=== PATIENT | female | born 1950 | race Caucasian/White ===

== ENCOUNTER 2019-12-17 15:23 | Emergency (ER) | payer MEDICARE, BC, SELFPAY ==
[2019-12-17 15:29] VITALS: BP 175/99; PULSE 74; RESP 16; TEMP 36.3; O2SAT 99
--- NOTE | 2019-12-17 15:52 | ED.GENADUL_ITS ---
Discharge Plan Disposition Patient Disposition: HOME Condition: Stable Discharge Details Chief Complaint: Cellulitis Clinical Impression: Rash Primary Care Provider: None,None ED Provider: Claudia Dick Home Meds and New Rx's Prescriptions: New prednisone 20 mg tablet See Rx Instructions .ROUTE .COMPLEX Qty: 18 RF: 0 doxycycline hyclate 100 mg tablet 100 mg PO BID 7 Days Qty: 14 RF: 0 Discharge Instructions Instructions: Acute Rash (ED), Dermatitis (ED) Additional Instructions: Take the steroids until finished. Take benadryl as needed and directed for itching. If you develop leg pain or fever, you can start the antibiotics. You will receive a call from care management regarding a follow-up appointment with the primary care doctor. You may benefit from referral to dermatology if her symptoms persist or worsen. Discharge Data Discharge Physician: Claudia Dick Medical Decision Making 69-year-old female presents with pruritic rash to back, abdomen and legs for the past several months. She has worsening rash to her left lower leg over the past few weeks. She denies any associated symptoms of fever, URI symptoms, shortness of breath or new exposures or meds. Her blood pressure is elevated but she appears nontoxic. She is afebrile. Normal ENT exam. Lungs clear. She has scattered patchy erythematous papules noted to her posterior neck and back as well as bilateral lower legs. Her left leg has significant more erythema and thickened epidermis. She has no leg pain or fever so doubt this is cellulitis at this time but would have concern of this as she has been scratching the area. Discussed at length that this does not appear obviously consistent with urticaria but contact dermatitis remains a possibility. Will treat with oral steroids. She was placed on care management list to arrange for follow-up appointment with her primary care doctor and for referral to dermatology if symptoms persist or worsen. She was also given a prescription for doxycycline if she develops leg pain or fever. She was advised to return here with any worsening symptoms. Medical Records Medical records reviewed: Yes I reviewed the patient's medical records. HPI General Mode of arrival: ambulatory . Date/Time Provider Initiated Documentation: 12/17/19 15:26 . Limitations to Documentation: no limitations . Information obtained by: patient . HPI Narrative: Patient is a 69-year-old female with a history of hypertension who presents with itchy rash to her entire body since [place]. She states the rash started on her neck and back and is now progressed to her abdomen and both legs. She states her left leg has become more itchy and red over the past several weeks which she has been scratching. She states the past few days she has developed a rash to her right upper lower leg. She denies any pain associated with the rash, fever, sore throat, cough, chest pain, shortness of breath, abdominal pain, nausea or vomiting. She denies any new exposures including new meds, soaps, detergents, travel, pets or foods. She has used hydrocortisone and taken Benadryl without significant relief. Related Data Home Medications Medication Instructions Recorded Confirmed doxycycline hyclate 100 mg PO BID 7 Days #14 tab 12/17/19 prednisone See Rx Instructions .ROUTE 12/17/19 .COMPLEX #18 tab Previous Rx's Medication Instructions Recorded doxycycline hyclate 100 mg PO BID 7 Days #14 tab 12/17/19 prednisone See Rx Instructions .ROUTE 12/17/19 .COMPLEX #18 tab Allergies Allergy/AdvReac Type Severity Reaction Status Date / Time Penicillins Allergy Unknown ITCHING, Unverified 12/17/19 15:33 RASH General Stated Complaint: Cellulitis CHANCE: 3 Review of Systems All systems reviewed & are unremarkable except as noted in HPI and below Constitutional Constitutional: Reports as per HPI, Denies chills and Denies fever(s) Eyes Eyes: Denies blurry vision ENT Ears, Nose, Mouth, and Throat: Denies dizziness, Denies sore throat and Denies throat swelling Cardiovascular Cardiovascular: Denies chest pain and Denies dyspnea Respiratory Respiratory: Denies cough and Denies dyspnea Gastrointestinal Gastrointestinal: Denies abdominal pain, Denies diarrhea and Denies vomiting Genitourinary Genitourinary: Denies hematuria and Denies dysuria Musculoskeletal Musculoskeletal: Denies back pain and Denies numbness Integumentary/Breasts Skin/Breast: Denies lesions and Denies rash Neurologic Neurologic: Denies dizziness, Denies localized weakness and Denies numbness Allergic/Immunologic Allergic/Immunologic: Denies throat swelling [facility] Medical History (Updated 12/17/19 @ 16:07 by Claudia Dick DO) HTN (hypertension) (Chronic) Surgical History (Updated 12/17/19 @ 16:07 by Claudia Dick DO) History of cataract surgery (Chronic) Social History Smoking/Tobacco Use Status: Current every day Tobacco Type: e-cigarettes Alcohol Intake: current Alcohol Intake frequency: 0-2 drinks per day Alcohol type: wine Drug use: Never Exam Const General: cooperative and healthy appearing Orientation: alert and awake [facility] Head: normal to inspection Ears: hearing grossly normal bilaterally, external ears normal and TM's normal bilaterally General nose exam: external nose normal Face and sinus: normal facial exam Mouth: oral mucosae normal Teeth and gingiva: dentition normal Throat: posterior oropharynx normal Eyes General: appearance normal, both eyes and all related structures Eyelids: eyelids normal Pupils: PERRL EOM: EOM intact bilaterally Neck Neck: normal visual inspection Lymphatic: no lymphadenopathy noted Chest Chest: normal inspection of the chest Resp Effort & Inspection: normal respiratory effort and able to speak in complete se ntences Auscultation: clear to auscultation bilaterally Cardio Rate: regular rate Rhythm: regular rhythm GI Inspection: normal to inspection Palpation: soft, not firm, no guarding, no hepatosplenomegaly, no masses and nontender Auscultation: normal bowel sounds Skin Other: scattered raised erythematous papules, some well circumscribed and some not well circumscribed noted to back of neck, back, abdomen, L lower leg, right proximal lower leg. Left lower leg noted to have more significant patchy erythema with thickened epidermis. Left ankle noted to have circumferential erythema and scaling of skin. There is no left calf tenderness. Left DP/PT pulses intact. There are scattered faint erythematous papules noted to right posterior proximal leg. Neuro General: patient alert and patient awake Cognition: normal cognition Speech: speech normal Gait: normal gait Motor: muscle tone normal throughout Sensory Exam: no sensory deficits noted Extrem General: normal to inspection, full ROM and capillary refill normal Psych Appearance: grossly normal Mental Status: mental status grossly normal Speech and Movement: speech and movement normal Affect: normal affect Thought Process: normal Course Vital Signs Vital signs: Vital Signs Temperature 97.3 F L 12/17/19 15:29 Pulse 74 12/17/19 15:29 Respiratory Rate 16 12/17/19 15:29 Blood Pressure 175/99 H 12/17/19 15:29 Pulse Oximetry 99 12/17/19 15:29 Temperature 97.3 F L 12/17/19 15:29 Temperature Source Skin 12/17/19 15:29 Pulse 74 12/17/19 15:29 Respiratory Rate 16 12/17/19 15:29 Respiratory Effort Non-Labored 12/17/19 15:29 Blood Pressure 175/99 H 12/17/19 15:29 Blood Pressure Position Sitting 12/17/19 15:29 Pulse Oximetry 99 12/17/19 15:29 Oxygen Delivery Method Room Air 12/17/19 15:29 Oxygen Flow Rate 0 12/17/19 15:29 Pain Level 2 12/17/19 15:29
[2019-12-17] MEDS: predniSONE 20 MG TAB 60 MG PO (15:56)
[2019-12-17 16:07] VITALS: BP 187/73
--- NOTE | 2020-02-12 13:25 | CMACTNOTE_ITS ---
- If Service Date Differs Date of service: 12/19/19 Time of Service: 13:25 Care Management Activity Note At the request of ED provider, CM coordinates a referral to [facility] to assist patient in establishing care with a PCP.
== END 2019-12-17 16:08 | disposition home or self-care (01) ==
PROVIDERS: Emergency Provider Physician Assistant
DX: R21 Rash and other nonspecific skin eruption (principal); I10 Essential (primary) hypertension
CPT/HCPCS: 99283; J7512

== ENCOUNTER 2020-02-12 08:48 | Emergency (ER) | payer MEDICARE, BC, SELFPAY ==
[2020-02-12 08:57] VITALS: BP 184/84; PULSE 85; RESP 18; TEMP 36.5; O2SAT 95
--- NOTE | 2020-02-12 09:00 | DI.US_ITS ---
EXAM: US LOWER EXTREMITY VENOUS LT CLINICAL HISTORY: swelling, reddness TECHNIQUE: Ultrasound performed using standard protocol. COMPARISON: No exams were available for comparison FINDINGS: Duplex venous ultrasound was performed according to the usual protocol. The deep veins are freely com pressible throughout and there is normal flow augmentation with manual calf compression. 2D and Doppl er evaluation are unremarkable. IMPRESSION: No evidence of deep venous thrombosis of left lower extremity.
--- NOTE | 2020-02-12 09:13 | W.ED.GENAD ---
Discharge Plan Disposition Patient Disposition: HOME Condition: Stable Discharge Details Chief Complaint: RashLesion Clinical Impression: Eczema Primary Care Provider: None,None ED Provider: Payal West Home Meds and New Rx's Prescriptions: New triamcinolone acetonide 0.1 % cream 1 applic TP BID 7 Days Qty: 30 RF: 0 Discharge Instructions Instructions: Eczema (ED) Additional Instructions: Use topical cream as instructed, return for any fever, chills. Care management was contacted regarding follow-up with primary care provider. Follow up with primary care provider in 3-5 days. Return to ED sooner if any worsening or concerns. Increase oral fluids. No DVT or clot noted on ultrasound. Keep leg covered with dressing. Medical Decision Making 69-year-old female presents with rash, left lower extremity erythema edema and oozing. Patient was seen for this in November and was referred to primary care which she has never followed up with. She was given prednisone and doxycycline at that time she reports that symptoms returned as soon as prednisone was finished. Differential diagnosis includes eczema, cellulitis, scabies, peripheral vascular disease, DVT Preliminary result from optomechanical technician is negative for DVT. At this time I feel like this patient has atopic dermatitis or eczema. Will prescribe triamcinolone topical cream. HPI General Mode of arrival: ambulatory. Date/Time Provider Initiated Documentation: 02/12/20 08:51. Limitations to Documentation: no limitations. Information obtained by: patient and family. HPI Narrative: 69-year-old female presents with left lower leg erythema, oozing and sloughing. She was seen for similar complaint middle of November and has not been able to follow-up with PCP since then. Rash began in October and on her lower back with positive pruritus and then spread to her abdomen arm and lower extremity. It is plaque-like, dry, and lower extremity is sloughing. She denies fever chills, pain or any other symptoms. Related Data Home Medications Medication Instructions Recorded Confirmed triamcinolone acetonide 1 applic TP BID 7 Days #30 gm 02/12/20 Previous Rx's Medication Instructions Recorded triamcinolone acetonide 1 applic TP BID 7 Days #30 gm 02/12/20 Allergies Allergy/AdvReac Type Severity Reaction Status Date / Time Penicillins Allergy Unknown ITCHING, Unverified 02/12/20 09:03 RASH General Stated Complaint: RashLesion CHANCE: 3 Review of Systems Narrative: Constitutional: Negative for weight loss, alert and oriented, well groomed, normal body habitus, appears comfortable. HEENT: Denies trauma, headaches, blurry vision, nasal discharge, sore throat, trouble swallowing. Chest: Denies chest pain, palpitations, irregular rhythm, hypertension. Respiratory: Denies Shortness of breath, cough, hemoptysis. GI: Denies abdominal pain, nausea, vomiting, diarrhea, constipation. : Denies dysuria, hematuria, flank pain, rectal bleeding. Skin: Dry patchy plaque-like rash severe on left lower extremity with oozing and erythema. Neuro: Denies dizziness, blurry vision, weakness, syncope, headache or facial numbness. Hematologic: Denies easy bruising, intolerance to heat or cold, hair loss. [facility] Medical History HTN (hypertension) (Chronic) Surgical History History of cataract surgery (Chronic) Social History Smoking/Tobacco Use Status: Current every day Tobacco Type: e-cigarettes Alcohol Intake: current Alcohol Intake frequency: 0-2 drinks per day Alcohol type: wine Drug use: Never Do you feel safe at home: Yes Do you feel safe in your relationship?: Yes Exam Narrative Exam Narrative: Constitutional: Alert and oriented x3. Appears stated age. Normal body habitus. Head: Normocephalic, no trauma. Eyes: Pupils PERRLA, Red reflex noted, EOM's intact. Eyelids symmetrical without lesions, discharge, or swelling. ENT: Bilateral TM's WNL, External ear normal to inspection, no mastoid TTP, swelling, or erythema, Nasal turbinates WNL, no nasal discharge. Normal dentition, Posterior pharynx WNL, no exudate. Chest: RRR, Normal S1, S2, distal pulses intact. Resp: Lungs clear to auscultation bilaterally, no wheezes, rales, or rhonchi. Musculoskeletal: Normal gait, 5/5 strength to all four extremities. Skin: Dry patchy pruritic plaque-like rash noted to her lower back, abdomen, left inner thigh left lower extremity is erythemic with sloughing of skin and oozing. 2+ edema noted. Capillary refill less than 2 sec. Neurologic: Cranial nerves II-XII intact. Alert and oriented x 3. DTR's intact. Hematologic/Lymphatic: No ecchymosis, no lymphadenopathy. Course Vital Signs Vital signs: Vital Signs Temperature 36.5 C 02/12/20 08:57 Pulse 85 02/12/20 08:57 Respiratory Rate 18 02/12/20 08:57 Blood Pressure 184/84 H 02/12/20 08:57 Pulse Oximetry 95 02/12/20 08:57 Temperature 36.5 C 02/12/20 08:57 Temperature Source Skin 02/12/20 08:57 Pulse 85 02/12/20 08:57 Respiratory Rate 18 02/12/20 08:57 Respiratory Effort 02/12/20 09:03 Blood Pressure 184/84 H 02/12/20 08:57 Blood Pressure Position Sitting 02/12/20 08:57 Pulse Oximetry 95 02/12/20 08:57 Oxygen Delivery Method Room Air 02/12/20 08:57 Oxygen Flow Rate 0 02/12/20 08:57 Pain Level 5 02/12/20 08:57
--- NOTE | 2020-02-12 09:18 | NUR.NOTE ---
Nursing Note: CARE MANAGEMENT REFERRAL IN INBOX
[2020-02-12] MEDS: Triamcinolone 0.1% CR 15 GM TUBE TP (09:33)
[2020-02-12] MEDS: Normal Saline Flush 10 ML SYR IVP (09:34)
[2020-02-12 09:36] LABS: Abs Immature Grans 0.05 k/cumm (0.0-0.09); Absolute Basophil Count 0.04 k/cumm (0.0-0.2); Absolute Eosinophil Count 0.32 k/cumm (0.0-0.7); Absolute Lymphocyte Count 1.29 k/cumm (1.2-3.4); Absolute Monocyte Count 1.06 k/cumm (0.11-0.7); Basophils % 0.5; Eosinophils % 3.7; HCT 42.9 % (36.0-46.0); HGB 14.4 g/dL (12.0-15.5); Immature Grans % 0.6 %; Lymphocytes % 15.1; Mean Corp. HGB Concentration 33.6 g/dL (32.0-36.0); Mean Corpuscular Hemoglobin 33.1 pg (27.0-33.0); Mean Corpuscular Volume 98.6 fL (80-95); Mean Platelet Volume 9.2 fL (8.0-11.0); Monocytes % 12.4; Neutrophils % 67.7; Platelet Count 295 x1000/uL (130-400); RBC 4.35 m/cumm (4.00-5.20); RBC Distribution Width 13.5 % (11.7-14.6); White Blood Cell Count 8.56 k/cumm (4.4-10.8)
[2020-02-12 09:49] LABS: ALT 23 U/L (14-59); AST 24 U/L (15-37); Albumin 3.5 g/dL (3.4-5.0); Alkaline Phosphatase 82 U/L (46-116); Anion Gap 6.7 mmol/L (3-11); BUN 12 mg/dL (7-18); Bilirubin, Total 0.8 mg/dL (0.2-1.0); CO2 29.3 mmol/L (21.0-32.0); CREATININE 0.72 mg/dL (0.55-1.02); Chloride 103 mmol/L (98-107); Glucose 111 mg/dL (74-106); Potassium 4.4 mmol/L (3.5-5.1); Sodium 139 mmol/L (136-145); Total Protein 7.1 g/dL (6.4-8.2)
[2020-02-12 11:18] VITALS: BP 183/81; PULSE 66; RESP 18; TEMP 36.5; O2SAT 97
--- NOTE | 2020-02-12 11:28 | NUR.NOTE ---
Nursing Note: REFERRAL TO CARE MANAGEMENT IN INBOX
--- NOTE | 2020-02-12 14:45 | CMPROGNOTE_ITS ---
- If Service Date Differs Date of service: 02/12/20 Time of Service: 14:45 Care Management Progress Note At ED provider's request, CM coordinates a referral to [facility] (tel. [phone], fax [phone]) and to [facility] to establish care with a PCP. Of note a referral was sent to [facility] in December 2019, but CM confirms they did not connect with patient, so she was never assigned a doctor through their medical office.
== END 2020-02-12 11:32 | disposition home or self-care (01) ==
PROVIDERS: Emergency Provider Registered Nurse Emergency; PCP Internal Medicine
DX: R60.0 Localized edema (principal); L30.9 Dermatitis, unspecified; I10 Essential (primary) hypertension
CPT/HCPCS: 36415; 80053; 99284; 85025; 93971

== ENCOUNTER 2022-07-19 20:42 | Emergency (ER) | payer MEDICARE, BC, SELFPAY ==
[2022-07-19] VITALS (9 sets, daily range): BP systolic 142–146; BP diastolic 81–110; PULSE 60–83; RESP 13–25; TEMP 36.4–36.8; O2SAT 89–99
--- NOTE | 2022-07-19 20:45 | RT.EKG_ITS ---
APPROVED REPORT Exam: Resting ECG Reason for Exam: fall Patient Location: E HR:67 bpm ECG Measurements Heart Rate 67 AXIS MO [id number] P [id number] QRSd 100 QRS 59 QT 580 T 57 QTc 622 Conclusion Physiican: Rate 67, sinus rhythm, notable artifact secondary to the patient's intoxicated state and continued mo vement. No STEMI.
--- NOTE | 2022-07-19 21:00 | DI.CT_ITS ---
Exam(s) CT HEAD WO EXAM: CT HEAD WO CLINICAL HISTORY: fall, etoh, hit head. TECHNIQUE: Imaging Protocol: Axial computed tomography images with coronal and sagittal reformatted images were created and reviewed COMPARISON: No exams were available for comparison FINDINGS: There are no skull fractures nor fluid in the visualized paranasal sinuses. Some mild mucosal thick ening is noted maxillary sinuses but without fluid levels therein. There is ossification of right-si ded mastoid air cells. Left mastoid air cells are clear. No fluid evident in either middle ear cavi ty. There is no evidence of intracranial hemorrhage, mass effect, or shift of midline structures. There are no extra-axial fluid collections. The ventricles are not enlarged or shifted and there is no blo od within the ventricular system nor within the basal cisterns. Bilateral mild periventricular hypodensity. No obvious territorial infarction. IMPRESSION: No acute intracranial findings on this noninfused CT scan of the brain. RADIATION DOSE DELIVERED: 709.51mGy.cm Total DLP DATA REPOSITORY: All CT scans at this facility are submitted to the National Radiology Data Registry (NRDR) Dose Index Registry (DIR) with the [employer] ([employer]). RADIATION OPTIMIZATION: All CT scans at this facility use at least one of these dose optimization te chniques: automated exposure control; mA and/or kV adjustment per patient size (includes targeted exa ms where dose is matched to clinical indication); or iterative reconstruction.
[2022-07-19 21:20] LABS: Abs Immature Grans 0.09 10^3/uL (0.0-0.06); Absolute Basophil Count 0.06 10^3/uL (0.0-0.2); Absolute Eosinophil Count 0.23 10^3/uL (0.0-0.7); Absolute Monocyte Count 0.77 10^3/uL (0.1-0.8); Absolute Neutrophil Count 3.25 10^3/uL (1.2-6.7); Basophils % 0.9; Eosinophils % 3.6; HCT 44.3 % (36.0-46.0); HGB 15.2 g/dL (11.2-15.7); Immature Grans % 1.4; Lymphocytes % 31.3; MCH 37.5 pg (27.0-33.0); MCHC 34.3 % (32.0-36.0); MCV 109 fL (80-95); MPV 9.4 fL (8.0-11.0); Neutrophils % 50.8; Platelet Count 240 10^3/uL (130-400); RBC 4.05 10^6/uL (3.93-5.22); RDW 13.5 % (11.7-14.6); RDW-SD 55.1 fL
[2022-07-19 21:48] LABS: Macrocytosis 2+
[2022-07-19 21:49] LABS: Diff Comment RBC Morph Reviewed
[2022-07-19 21:56] LABS: Bilirubin Negative (Negative); Blood Negative (Negative); Clarity Clear (Clear); Glucose Negative (Negative); Ketones Negative (Negative); Leukocyte Esterase Negative (Negative); Nitrite Negative (Negative); Urobilinogen 0.2 EU/dL (Up TO 0.2); pH 6.5 (5-8)
--- NOTE | 2022-07-19 22:04 | DI.VRAD_ITS ---
PROCEDURE INFORMATION: Exam: CT Head Without Contrast Exam date and time: 07/19/2022 9:55 PM Age: 71 years old Clinical indication: Injury or trauma; Concussion/head injury; Consciousness not specified; Injury date: 07/19/22; Injury details: Fall, ETOH, hit head TECHNIQUE: Imaging protocol: Computed tomography of the head without contrast. Radiation optimization: All CT scans at this facility use at least one of these dose optimization techniques: automated exposure control; mA and/or kV adjustment per patient size (includes targeted exams where dose is matched to clinical indication); or iterative reconstruction. COMPARISON: No relevant prior studies available. FINDINGS: Brain: Mild volume loss No hemorrhage. Mild white matter disease. No mass effect. Cerebral ventricles: No ventriculomegaly. Paranasal sinuses: Mild mucosal thickening. No fluid levels. Mastoid air cells: Visualized mastoid air cells are well aerated. Bones/joints: Unremarkable. No acute fracture. Soft tissues: Unremarkable. IMPRESSION: No acute intracranial abnormality. Dictated and Authenticated by: Claudio Davalos MD. Ordering:MOMO Boles MD
[2022-07-19 22:09] LABS: ALT 50 U/L (14-59); AST 65 U/L (15-37); Albumin 3.5 g/dL (3.4-5.0); Alkaline Phosphatase 89 U/L (46-116); Anion Gap 11.8 mmol/L (3-11); BUN 8 mg/dL (7-18); Bilirubin, Total 0.6 mg/dL (0.2-1.0); CO2 25.2 mmol/L (21.0-32.0); CREATININE 0.6 mg/dL (0.55-1.02); Chloride 106 mmol/L (98-107); Estimated GFR 95.31 (mL/min/1.73m2); Glucose 83 mg/dL (74-106); Potassium 3.6 mmol/L (3.5-5.1); Sodium 143 mmol/L (136-145); Total Protein 7.2 g/dL (6.4-8.2)
--- NOTE | 2022-07-19 22:19 | W.ED.GENAD ---
Discharge Plan Disposition Patient Disposition: HOME Condition: Stable Discharge Details Clinical Impression: ETOHism, Fall Primary Care Provider: Rosario Lawrence ED Provider: Ramana Bruce Home Meds and New Rx's Prescriptions: No Action triamcinolone acetonide 0.1 % cream 1 applic TP .qod Rx Instructions: lower extremity CeraVe cream in between daysper note dated 03/27/20 cgc Discharge Instructions Instructions: Abuse of Alcohol (ED) Additional Instructions: Please decrease your use of alcohol. If you continue on this track it will cause significant problems down the road. If you notice any worsening of your symptoms, or any new symptoms such as vomiting, diarrhea, fever, chills, shortness of breath, chest pain, numbness, weakness, or fainting , please return immediately to the emergency department for reevaluation. Please follow up with your primary care provider as soon as possible for reassessment and reevaluation. As always, it was a pleasure participating in your medical care today. Referrals: Rosario Lawrence MD [Primary Care Provider] - Medical Decision Making 71-year-old female with no significant past medical history who presents today for evaluation of fall after intoxication. Patient was at home and drank 9 shots of hard liquor. Patient was brought to the ER after she fell by EMS. Family states that the patient has not been to see a doctor in the last 10 years. Patient denies any pain at this point. She denies any chest pain, headache, neck pain, extremity pain. Patient did not hit her head per the . Patient does drink alcohol regularly. No other complaints at this time. No other modifying factors. Physical exam is notably unremarkable. No evidence of trauma whatsoever. Laboratory work-up was performed is stable. EKG is stable but there is notable artifact secondary to the patient's intoxicated status and movement. CT scan was performed and shows no evidence of acute process. No evidence of bleed or stroke per virtual radiology. Patient does have an elevated alcohol level. I spent a long time discussing the case with the patient's , we discussed between the and myself and the patient the need for cessation of alcohol gradually, the patient understands this but is not completely willing to do this. At this time I feel that the patient is stable for discharge, but do recommend continued close follow-up with PCP as well as slow diminishment of alcohol daily. Patient is otherwise notably stable. She ambulates well. feels comfortable bringing the patient home. I have extensively reviewed the treatment plan and discharge instructions with the patient and their family. I have addressed all patient concerns at this time. The patient and family was made aware of what symptoms to monitor for that would warrant a return to the emergency department. Discussed the plan with the patient and family, they demonstrate verbal understanding and agreement with our assessment and plan at this time. The documentation in this chart was dictated using [employer] dictation software. Please excuse any dictation errors. EKG 21: 24 Rate 67, sinus rhythm, notable artifact secondary to the patient's intoxicated state and continued movement. No STEMI. FINDINGS: Brain: Mild volume loss No hemorrhage. Mild white matter disease. No mass effect. Cerebral ventricles: No ventriculomegaly. Paranasal sinuses: Mild mucosal thickening. No fluid levels. Mastoid air cells: Visualized mastoid air cells are well aerated. Bones/joints: Unremarkable. No acute fracture. Soft tissues: Unremarkable. IMPRESSION: No acute intracranial abnormality. Thank you for allowing us to participate in the care of your patient. Dictated and Authenticated by: Claudio Davalos MD HPI General Date/Time Provider Initiated Documentation: 07/19/22 20:42. HPI Narrative: 71-year-old female with no significant past medical history who presents today for evaluation of fall after intoxication. Patient was at home and drank 9 shots of hard liquor. Patient was brought to the ER after she fell by EMS. Family states that the patient has not been to see a doctor in the last 10 years. Patient denies any pain at this point. She denies any chest pain, headache, neck pain, extremity pain. Patient did not hit her head per the . Patient does drink alcohol regularly. No other complaints at this time. No other modifying factors. Related Data Home Medications Medication Instructions Recorded Confirmed triamcinolone acetonide 0.1 % 1 applic topical .qod 04/02/20 topical cream Allergies Allergy/AdvReac Type Severity Reaction Status Date / Time Penicillins Allergy Unknown ITCHING, Unverified 02/18/20 12:02 RASH General Stated Complaint: ETOHWithdr CHANCE: 3 Review of Systems All systems reviewed & are unremarkable except as noted in HPI and below PFSH All Active Problems ETOHism (Acute) Fall (Acute) Medical History HTN (hypertension) Surgical History History of cataract surgery Social History Smoking/Tobacco Use Status: Current every day Tobacco Type: e-cigarettes Smoking risk assessment performed?: Yes Alcohol Intake: current Alcohol Intake frequency: 0-2 drinks per day Alcohol type: wine Drug use: Never Do you feel safe at home: Yes Do you feel safe in your relationship?: Yes Exam Narrative Exam Narrative: 1.Const: Well-nourished, Well-developed, appearing stated age 2.Eyes: PERRL, no conjunctival injection, and symmetrical lids. 3.ENT: Atraumatic external nose and ears. Moist MM. Neck: Symmetric, trachea midline, No thyromegaly. There is no evidence of raccoon eyes, avila sign, CSF rhinorrhea, mastoid tenderness, cranial crepitus, hemotympanum, exophthalmos, or hyphema. Patient demonstrates intact dentition with no signs of tooth avulsion or fracture, no signs of jaw deformity, no evidence of a LeFort's fracture, with an intact palate, nose and orbital region. There is no evidence of a nasal septal hematoma. No proptosis. Jaw closes symmetrically. Airway is clear. 4.CVS: +S1/S2, No murmurs or gallops. Peripheral pulses 2+ and equal in all extremities. Brisk capillary refill in all extremities. 5.RESP: Unlabored respiratory effort. Clear to auscultation bilaterally. No wheezes rales or rhonchi 6.GI: Soft, Nontender/Nondistended, No hepatosplenomegaly. No guarding or rebound. 7.MSK: Normocephalic/Atraumatic, Extremities w/o deformity or ttp No cyanosis or clubbing, Normal movement of all extremities 8.Skin: Warm, Dry. No rashes or lesions. 9.Neuro: automobile drivers II-XII grossly intact. Sensation grossly intact, no focal neurologic deficits. All 6 cardinal planes of vision are fully intact. No evidence of rotatory or vertical nystagmus. The patient demonstrated a normal ycegqs-djub-gcbinb, good dexterity. There was no evidence of dysdiadochokinesia. Patient was able to ambulate without difficulty. There was no wide-based gait. Romberg testing was normal. Nxrr-tf-zijq testing was normal. Sensation was intact bilaterally as well as muscle strength bilaterally for all extremities. Patient was able to verbalize butter cup with no slurring, or miss pronunciation. 10.Psych: (AAO) x3. Appropriate mood and affect Course Vital Signs Vital signs: Vital Signs Temperature 36.4 C L 07/19/22 20:40 Pulse 75 07/19/22 20:40 Respiratory Rate 15 07/19/22 20:40 Blood Pressure 146/81 H 07/19/22 20:40 Pulse Oximetry 99 07/19/22 20:40 Temperature 36.4 C L 07/19/22 20:40 Temperature Source Temporal Artery Scan 07/19/22 20:40 Pulse 66 07/19/22 21:47 Pulse 69 07/19/22 21:46 Respiratory Rate 18 07/19/22 21:47 Respiratory Effort 07/19/22 20:40 Respiratory Pattern Normal 07/19/22 21:21 Blood Pressure 143/99 H 07/19/22 21:47 Blood Pressure Mean 103 07/19/22 21:46 Pulse Oximetry 96 07/19/22 21:47 Oxygen Delivery Method Room Air 07/19/22 21:47 Oxygen Flow Rate 0 07/19/22 21:47 Pain Level 0 07/19/22 21:47 Lab/Test Results Lab/Test Results: Laboratory Tests Range/Units 07/19/22 07/19/22 07/19/22 20:17 20:17 21:43 WBC (4.4-10.8) 10^3/uL 6.40 RBC (3.93-5.22) 10^6/uL 4.05 Hgb (11.2-15.7) g/dL 15.2 Hct (36.0-46.0) % 44.3 MCV (80-95) fL 109 H MCH (27.0-33.0) pg 37.5 H MCHC (32.0-36.0) % 34.3 RDW (11.7-14.6) % 13.5 Plt Count (130-400) 10^3/uL 240 MPV (8.0-11.0) fL 9.4 Immature Gran % 1.4 Neutrophils % 50.8 Lymphocytes % 31.3 Monocytes % 12.0 Eosinophils % 3.6 Basophils % 0.9 Nucleated RBC % (0.0-0.3) % 0.0 Absolute Neutrophils (1.2-6.7) 10^3/uL 3.25 Absolute Lymphocytes (1.2-3.4) 10^3/uL 2.00 Absolute Monocytes (0.1-0.8) 10^3/uL 0.77 Absolute Eosinophils (0.0-0.7) 10^3/uL 0.23 Absolute Basophils (0.0-0.2) 10^3/uL 0.06 RBC Morphology See Below Macrocytosis 2+ Sodium Cancelled 143 Potassium Cancelled 3.6 Chloride Cancelled 106 Carbon Dioxide Cancelled 25.2 Anion Gap Cancelled 11.8 H BUN Cancelled 8 Creatinine Cancelled 0.6 Est GFR (CKD-EPI 2020) Cancelled 95.31 Glucose Cancelled 83 Calcium Cancelled 9.0 Total Bilirubin Cancelled 0.6 AST Cancelled 65 H ALT Cancelled 50 Alkaline Phosphatase Cancelled 89 Total Protein Cancelled 7.2 Albumin Cancelled 3.5 Urine Color (Yellow) Urine Clarity (Clear) Urine pH (5-8) Ur Specific Clayton (1.005-1.025) Urine Protein (Negative) mg/dL Urine Ketones (Negative) mg/dL Urine Blood (Negative) Urine Nitrite (Negative) Urine Bilirubin (Negative) Urine Urobilinogen (Up TO 0.2) EU/dL Ur Leukocyte Esterase (Negative) Urine Glucose (Negative) mg/dL Ethyl Alcohol Cancelled 228.0 H Range/Units 07/19/22 21:48 WBC (4.4-10.8) 10^3/uL RBC (3.93-5.22) 10^6/uL Hgb (11.2-15.7) g/dL Hct (36.0-46.0) % MCV (80-95) fL MCH (27.0-33.0) pg MCHC (32.0-36.0) % RDW (11.7-14.6) % Plt Count (130-400) 10^3/uL MPV (8.0-11.0) fL Immature Gran % Neutrophils % Lymphocytes % Monocytes % Eosinophils % Basophils % Nucleated RBC % (0.0-0.3) % Absolute Neutrophils (1.2-6.7) 10^3/uL Absolute Lymphocytes (1.2-3.4) 10^3/uL Absolute Monocytes (0.1-0.8) 10^3/uL Absolute Eosinophils (0.0-0.7) 10^3/uL Absolute Basophils (0.0-0.2) 10^3/uL RBC Morphology Macrocytosis Sodium Potassium Chloride Carbon Dioxide Anion Gap BUN Creatinine Est GFR (CKD-EPI 2020) Glucose Calcium Total Bilirubin AST ALT Alkaline Phosphatase Total Protein Albumin Urine Color (Yellow) Yellow Urine Clarity (Clear) Clear Urine pH (5-8) 6.5 Ur Specific [place] (1.005-1.025) 1.010 Urine Protein (Negative) mg/dL Negative Urine Ketones (Negative) mg/dL Negative Urine Blood (Negative) Negative Urine Nitrite (Negative) Negative Urine Bilirubin (Negative) Negative Urine Urobilinogen (Up TO 0.2) EU/dL 0.2 Ur Leukocyte Esterase (Negative) Negative Urine Glucose (Negative) mg/dL Negative Ethyl Alcohol PAWSS Have you Been Recently Intoxicated or Drunk Within the Last 30 days?: Yes Have you Ever Experienced Previous Episodes of Alcohol Withdrawal?: No Have you ever Experienced Withdrawal Seizures?: No Have you ever Experienced Delirium Tremens(DT)s?: No Have you ever undergone Alcohol Rehabilitation Treatment (i.e, inpt ot outpatient treatment programs)?: No Have you ever Experienced Blackouts?: No Have you ever Combined Alcohol with other Downers within the last 90 days?: No Have you ever Combined Alcohol with any other Substance of Abuse during the last 90 days?: No Positive Blood Alcohol level on Presentation? [PCS.BAL]: Yes Result: 2
== END 2022-07-19 22:38 | disposition home or self-care (01) ==
PROVIDERS: Emergency Provider Student in an Organized Health Care Education/Training Program; PCP Internal Medicine
DX: F10.129 Alcohol abuse with intoxication, unspecified (principal); I10 Essential (primary) hypertension; F17.290 Nicotine dependence, other tobacco product, uncomplicated; Y90.7 Blood alcohol level of 200-239 mg/100 ml; Z79.899 Other long term (current) drug therapy
CPT/HCPCS: 80053; 93005; 99284; 70450; 80320; 81003; 85025; 93010; 99285

== ENCOUNTER 2023-04-29 14:43 | Emergency (ER) | payer MEDICARE, BC, SELFPAY ==
[2023-04-29 15:00] VITALS: BP 142/99; PULSE 68; RESP 16; TEMP 36.9; O2SAT 96
--- NOTE | 2023-04-29 16:00 | DI.CT_ITS ---
Exam(s) CT BRAIN NECK CTA EXAM: CT BRAIN NECK CTA CLINICAL HISTORY: loss of vision left eye. TECHNIQUE: Imaging Protocol: Axial CT angiography was performed with multi-slice acquisition and mu lti-planar and/or 3D reconstructions. CONTRAST MATERIAL: Intravenous: Omnipaque 350 Contrast volume:structured data in ml COMPARISON: No exams were available for comparison FINDINGS: CTA Neck W: Aortic arch anatomy: There is independent origin of the left vertebral artery off the aortic arch. N o significant stenosis at the origin of the great vessels off of the aortic arch. No intimal flap ev ident. Anterior circulation: Both common carotid arteries ascend with normal luminal diameters. At the left carotid bulb there is some calcified plaque which extends into the anterior wall of the p roximal left internal carotid artery. No tight stenosis. The left internal carotid artery is somewh at tortuous in the upper neck but patent and also demonstrated to be patent in the skull base-carotid canal. The right carotid bulb exhibits minimal plaque. No significant stenosis evident at this level nor in the proximal right ICA. The course of the right internal carotid artery in the upper neck is predom inantly retropharyngeal to the level of the uvula, prior to entering the skull base-carotid canal. Posterior circulation: The left vertebral artery originates as an independent vessel off of the aortic arch. The left verte bral artery originates in conventional fashion off of the subclavian artery. There is no significant stenosis at the origin of either vertebral artery. The right vertebral artery is dominant but both are patent without evidence of intraluminal thrombus nor dissection. At the skull base both vertebra l arteries contribute to the formation of the basilar artery. CTA Brain W: Anterior circulation: Both internal carotid arteries are patent in the skull base-carotid canals as well as within the cave rnous sinuses. Mild calcified plaque is seen along the medial wall of the right intracavernous ICA. The ophthalmic arteries appear to be patent, region ating off of the intracavernous internal carotid arteries bilaterally. The supraclinoid aspects of both internal carotid arteries are patent. The left A1 segment is domina nt. Right A1 segment is thinner, on developmental basis. Both anterior cerebral arteries are patent . There is no evidence of aneurysm at the level of the anterior communicating artery. Both middle cerebral arteries are patent with no evidence of significant stenosis nor intraluminal th rombus. There also no aneurysms of these vessels. Posterior circulation: Basilar arteries patent without significant stenosis. Distally gives off superior cerebellar arterie s and above this level terminates as patent bilateral posterior cerebral arteries. There is no aneur ysm at the tip of the basilar artery nor elsewhere in the [id number]. CT BRAIN: There is no evidence of intracranial hemorrhage, mass effect, or shift of midline structures. There are no extra-axial fluid collections. Ventricles are not enlarged or shifted. There are no ring enh ancing lesions in the brain and no abnormal meningeal enhancement. There is relatively symmetrical bilateral periventricular white matter hypodensity consistent with ch ronic small vessel disease. IMPRESSION: 1. Patent carotid arteries in the neck. Mild plaque as described above at the carotid bulbs and prox imal ICAs. No obvious hemodynamically significant stenosis. The course of the right internal caroti d artery in the upper neck is noted to be retropharyngeal. 2. Patent vertebral arteries in the neck.. Right vertebral artery is dominant. No intraluminal thr ombus nor dissection of the vertebral arteries. 3. Patent intracranial arteries. 4. No evidence of obvious infarct or intracranial hemorrhage. No enhancing lesions in the brain and no abnormal meningeal enhancement evident. RADIATION DOSE DELIVERED: 1,870.37mGy.cm Total DLP DATA REPOSITORY: All CT scans at this facility are submitted to the National Radiology Data Registry (NRDR) Dose Index Registry (DIR) with the [employer] (A[employer]). RADIATION OPTIMIZATION: All CT scans at this facility use at least one of these dose optimization te chniques: automated exposure control; mA and/or kV adjustment per patient size (includes targeted exa ms where dose is matched to clinical indication); or iterative reconstruction.
--- NOTE | 2023-04-29 16:00 | RT.EKG_ITS ---
APPROVED REPORT Exam: Resting ECG Reason for Exam: Visual disturbances Patient Location: E HR:59 bpm ECG Measurements Heart Rate 59 AXIS OK 136 P 43 QRSd 86 QRS -12 QT 464 T -11 QTc 461 Conclusion Sinus bradycardia...rate< [address] intervals. No ST segment or T wave abnormalities to suggest occlusive [place]
--- NOTE | 2023-04-29 16:14 | ED.GENADUL_ITS ---
Discharge Plan Disposition Patient Disposition: Home Condition: Serious Discharge Details Clinical Impression: Visual disturbance Primary Care Provider: Unknown,Unknown ED Provider: Payal West Home Meds and New Rx's Prescriptions: New furosemide 20 mg tablet 20 mg PO DAILY Qty: 20 0RF Rx Instructions: Take 1 tablet by mouth in the morning daily. No Action triamcinolone acetonide 0.1 % cream 1 applic TP .qod Rx Instructions: no longer using Discharge Instructions Instructions: Blurred Vision (ED) Additional Instructions: At this time CT shows no evidence of intracranial abnormality no head bleeds, no narrowing or blocked vessels in your brain. Your labs do show that you are retaining a little bit of fluid. Please take the Lasix once a day in the morning for the swelling in your legs. You do need to follow-up with your primary care provider to discuss this further. I did speak with Dr. Escobedo with ophthalmology at [facility] they will agree to see you tomorrow morning between 9 and 9:30 AM. If you can present to the formerly [facility] for be tomorrow morning. The phone number there is [phone] they can do an evaluation. Return to the ER for any headache, weakness on one side of your body or the othe r, or concerns. Follow up with primary care provider in 3-5 days. Return to ED sooner if any worsening or concerns. Increase oral fluids. Discharge Data Discharge Date/Time-TO BE ENTERED AT DEPARTURE: 04/29/23 20:07 Medical Decision Making 72-year-old female with a subjective history of high blood pressure and cataract surgery approximately 10 years ago presents with loss of vision to her left eye which occurred last night at 7:00 at the breakfast bar. Patient reports that she has no pain no headache no weakness dizziness neurologically she is intact she is somewhat hard of hearing. She does have a family history of congestive heart failure. She does not take any medications for blood pressure. Of note she has had trace bilateral lower extremity swelling and poor circulation per family report. She denies any recent falls or head injuries. No facial droop foreign legal consultant are 5+ bilaterally upper extremities 4+ lower extremities. No gross motor neurodeficits noted. Work-up ordered including CBC CMP proBNP, urinalysis, PT PTT. We will do a Mercado lamp exam and a [id number]-[id number] ultrasound to rule out vitreous hemorrhage. We will also check optic pressure with tonometer. However patient has no pain. EKG was reviewed by Dr. Conrad GRADY attending, please see her official report. No STEMI, sinus bradycardia. Differential diagnosis includes not limited to CVA, TIA, retinal occlusion, vitreous detachment, retinal detachment, central retinal artery occlusion, acute maculopathy pseudotumor cerebri, retinal hemorrhage or vitreous hemorrhage. Sagittal and transverse orbital ultrasound performed, no vitreous hemorrhage or evidence of obvious abnormality noted. Patient tolerated well. Mercado lamp exam performed no uptake in dye. EOMs intact. Optic pressure measured with tonometer which was 9.6. CBC within normal limits, MCV 107, MCH 37.6, CMP largely within normal limits, magnesium slightly low at 1.7, proBNP slightly elevated at 411, initial troponin within normal limits. Urinalysis is still pending at this time. On patient reevaluation she is still pain-free. Denies any facial pain headach e. At this time I do suspect that has something to do with her cataract surgery. She does states that she does have a shadow like cloud noted denies any curtain falling. She does not see any colors. We will have her follow-up with [facility] in the next 1 or 2 days urgently. Will consult with [facility] ophthalmology. 192: [facility] transfer center called to consult with Ophthalmology. . 1933: Spoke with Dr. Granda with Opthlamology at [facility], who will see her tomorrow between 0900 and 0930 at the clinic, phone number [phone]. Discussed plan of care with patient and daughter who verbalized understanding and are in agreement with the plan. Patient given a prescription for 20 mg of Lasix to take p.o. daily with close follow-up with primary care provider. Patient was placed on the care management list to assist her in getting a PCP appointment within the next week for follow-up. Patient and family verbalized understanding. This text was generated using Wordyation system, please disregard any oddities of phrase or misspellings. Medical Records Medical records reviewed: Yes I reviewed the patient's medical records. Lab Data Lab results reviewed: Yes I reviewed the patient's lab results. Labs: Laboratory Tests Range/Units 04/29/23 04/29/23 04/29/23 16:40 16:40 16:40 WBC (4.4-10.8) 10^3/uL RBC (3.93-5.22) 10^6/uL Hgb (11.2-15.7) g/dL Hct (36.0-46.0) % MCV (80-95) fL MCH (27.0-33.0) pg MCHC (32.0-36.0) % RDW (11.7-14.6) % Plt Count (130-400) 10^3/uL MPV (8.0-11.0) fL Immature Gran % Neutrophils % Lymphocytes % Monocytes % Eosinophils % Basophils % Nucleated RBC % (0.0-0.3) % Absolute Neutrophils (1.2-6.7) 10^3/uL Absolute Lymphocytes (1.2-3.4) 10^3/uL Absolute Monocytes (0.1-0.8) 10^3/uL Absolute Eosinophils (0.0-0.7) 10^3/uL Absolute Basophils (0.0-0.2) 10^3/uL RBC Morphology Macrocytosis PT (9.3-11.0) sec 9.3 INR (0.9-1.1) 0.9 APTT (21.5-31.9) sec 21.4 L Sodium (136-145) mmol/L 141 Potassium (3.5-5.1) mmol/L 3.7 Chloride (98-107) mmol/L 104 Carbon Dioxide (21.0-32.0) mmol/L 27.7 Anion Gap (3-11) mmol/L 9.3 BUN (7-18) mg/dL 8 Creatinine (0.55-1.02) mg/dL 0.7 Est GFR (CKD-EPI 2020) (mL/min/1.73m2) 91.26 Glucose (74-106) mg/dL 94 Calcium (8.5-10.1) mg/dL 9.6 Magnesium (1.8-2.4) mg/dL 1.7 L Total Bilirubin (0.2-1.0) mg/dL 0.9 AST (15-37) U/L 22 ALT (14-59) U/L 22 Alkaline Phosphatase (46-116) U/L 69 Troponin I (<or=60) ng/L < 50 NT-Pro-B Natriuret Pep (<300) pg/mL 411 H Total Protein (6.4-8.2) g/dL 7.5 Albumin (3.4-5.0) g/dL 3.6 Range/Units 04/29/23 04/29/23 16:40 19:11 WBC (4.4-10.8) 10^3/uL 9.89 RBC (3.93-5.22) 10^6/uL 3.94 Hgb (11.2-15.7) g/dL 14.8 Hct (36.0-46.0) % 42.3 MCV (80-95) fL 107 H MCH (27.0-33.0) pg 37.6 H MCHC (32.0-36.0) % 35.0 RDW (11.7-14.6) % 13.3 Plt Count (130-400) 10^3/uL 271 MPV (8.0-11.0) fL 10.2 Immature Gran % 0.3 Neutrophils % 63.1 Lymphocytes % 22.4 Monocytes % 10.0 Eosinophils % 3.5 Basophils % 0.7 Nucleated RBC % (0.0-0.3) % 0.0 Absolute Neutrophils (1.2-6.7) 10^3/uL 6.23 Absolute Lymphocytes (1.2-3.4) 10^3/uL 2.22 Absolute Monocytes (0.1-0.8) 10^3/uL 0.99 H Absolute Eosinophils (0.0-0.7) 10^3/uL 0.35 Absolute Basophils (0.0-0.2) 10^3/uL 0.07 RBC Morphology See Below Macrocytosis 2+ PT (9.3-11.0) sec INR (0.9-1.1) APTT (21.5-31.9) sec Sodium (136-145) mmol/L Potassium (3.5-5.1) mmol/L Chloride (98-107) mmol/L Carbon Dioxide (21.0-32.0) mmol/L Anion Gap (3-11) mmol/L BUN (7-18) mg/dL Creatinine (0.55-1.02) mg/dL Est GFR (CKD-EPI 2020) (mL/min/1.73m2) Glucose (74-106) mg/dL Calcium (8.5-10.1) mg/dL Magnesium (1.8-2.4) mg/dL Total Bilirubin (0.2-1.0) mg/dL AST (15-37) U/L ALT (14-59) U/L Alkaline Phosphatase (46-116) U/L Troponin I (<or=60) ng/L Cancelled NT-Pro-B Natriuret Pep (<300) pg/mL Total Protein (6.4-8.2) g/dL Albumin (3.4-5.0) g/dL HPI General Mode of arrival: ambulatory . Date/Time Provider Initiated Documentation: 04/29/23 15:35 . Limitations to Documentation: no limitations . Information obtained by: patient, family, RN notes reviewed and old records reviewed . HPI Narrative: 72-year-old female with a subjective history of high blood pressure and cataract surgery approximately 10 years ago presents with loss of vision to her left eye which occurred last night at 7:00 at the breakfast bar. Patient reports that she has no pain no headache no weakness dizziness neurologically she is intact she is somewhat hard of hearing. She does have a family history of congestive heart failure. She does not take any medications for blood pressure. Of note she has had trace bilateral lower extremity swelling and poor circulation per family report. She denies any recent falls or head injuries. No facial droop foreign legal consultant are 5+ bilaterally upper extremities 4+ lower extremities. No gross motor neurodeficits noted. Related Data Home Medications Medication Instructions Recorded Confirmed triamcinolone acetonide 0.1 % 1 applic topical .qod 04/02/20 topical cream furosemide 20 mg tablet 20 mg PO DAILY edema #20 tabs 04/29/23 Previous Rx's Medication Instructions Recorded furosemide 20 mg tablet 20 mg PO DAILY edema #20 tabs 04/29/23 Allergies Allergy/AdvReac Type Severity Reaction Status Date / Time Penicillins Allergy Unknown ITCHING, Unverified 04/29/23 15:05 RASH General Stated Complaint: EyeProblem CHANCE: 3 Review of Systems All systems reviewed & are unremarkable except as noted in HPI and below Constitutional Constitutional: Denies frequent falls, Denies headache(s) and Denies weakness Eyes Eyes: Reports loss of vision (Left eye) ENT Ears, Nose, Mouth, and Throat: Denies headache(s) and Denies disequilibrium Neurologic Neurologic: Reports as per HPI, Denies frequent falls, Denies headache(s), Denies lack of coordination, Denies localized weakness, Reports loss of vision (Left eye), Denies memory loss, Denies disequilibrium and Denies weakness Psychiatric Psychiatric: Denies memory loss PFSH All Active Problems (Updated 04/29/23 @ 19:42 by Payal West NP) Visual disturbance (Acute) Medical History (Updated 04/29/23 @ 19:42 by Payal West NP) HTN (hypertension) Surgical History History of cataract surgery Social History Smoking/Tobacco Use Status: Former Tobacco Use Smoking risk assessment performed?: Yes Alcohol Intake: former Drug use: Never Housing: house Do you feel safe at home: Yes Do you feel safe in your relationship?: Yes Exam Narrative Exam Narrative: Constitutional: Alert and oriented x3. Appears stated age. Normal body habitus. Head: Normocephalic, no trauma. Eyes: Pupils PERRL, EOM's intact. Eyelids symmetrical without lesions, discharge, or swelling. Loss of red reflex on left eye.See [facility] for mercado lamp exam and optic pressure. ENT: Bilateral TM's WNL, External ear normal to inspection, no mastoid TTP, swelling, or erythema, Nasal turbinates WNL, no nasal discharge. Normal dentition, Posterior pharynx WNL, no exudate. Chest: RRR, Normal S1, S2, distal pulses intact. Resp: Lungs clear to auscultation bilaterally, no wheezes, rales, or rhonchi. Abdomen: Soft, non-distended, Normoactive bowel sounds all 4 quads. Musculoskeletal: Normal gait, 5/5 strength to all four extremities. Skin: No suspicious rashes or lesions. Capillary refill less than 2 sec. Neurologic: Cranial nerves II-XII intact. Alert and oriented x 3. Motor: No deficits noted. Sensory: Intact bilaterally all 4 extremities. Reflexes: DTR's intact bilaterally.. Hematologic/Lymphatic: No ecchymosis, no lymphadenopathy. Eyes General: appearance normal, both eyes and all related structures Alignment and Position: alignment normal Periorbital: periorbital findings normal Eyelids: eyelids normal Conjunctivae: conjunctivae normal Course Vital Signs Vital signs: Vital Signs Temperature 36.9 C 04/29/23 15:00 Pulse 68 04/29/23 15:00 Respiratory Rate 16 04/29/23 15:00 Blood Pressure 142/99 H 04/29/23 15:00 Pulse Oximetry 96 04/29/23 15:00 Temperature 36.9 C 04/29/23 15:00 Temperature Source Skin 04/29/23 15:00 Pulse 68 04/29/23 15:00 Respiratory Rate 16 04/29/23 15:00 Respiratory Effort Normal, Non-Labored 04/29/23 15:13 Blood Pressure 142/99 H 04/29/23 15:00 Blood Pressure Position Sitting 04/29/23 15:00 Pulse Oximetry 96 04/29/23 15:00 Oxygen Delivery Method Room Air 04/29/23 15:00 Oxygen Flow Rate 0 04/29/23 15:00 POCUS Exam (ED) Limited Ocular Exam DATE OF EXAM: 04/29/23 TIME OF EXAM: 18:52 PROVIDER THAT PERFORMED THE STUDY: Payal West IS THIS A REPEAT EXAM DURING THIS ENCOUNTER: No OCULAR EXAM: Left eye INDICATION FOR LEFT EYE EXAM: Decreased vision and Vision loss. VISUALIZED STRUCTURES: Left lens PERTINTINENT FINDINGS/IMPRESSION OF THE LEFT EYE: No apparent abnormalities: DIFFERENTIAL DIAGNOSES: Retinal Detachment, Retinal hemorrhage, Vitreous hemorrhage, Optic neuritis, Acute angle closure Glaucoma, Giant Cell Arteritis, Arteritic Ischemic Optic Neuropathy Exam complete
[2023-04-29 16:55] LABS: Abs Immature Grans 0.03 10^3/uL (0.0-0.06); Absolute Basophil Count 0.07 10^3/uL (0.0-0.2); Absolute Eosinophil Count 0.35 10^3/uL (0.0-0.7); Absolute Lymphocyte Count 2.22 10^3/uL (1.2-3.4); Absolute Monocyte Count 0.99 10^3/uL (0.1-0.8); Absolute Neutrophil Count 6.23 10^3/uL (1.2-6.7); Basophils % 0.7; Eosinophils % 3.5; HCT 42.3 % (36.0-46.0); HGB 14.8 g/dL (11.2-15.7); Immature Grans % 0.3; Lymphocytes % 22.4; MCH 37.6 pg (27.0-33.0); MCV 107 fL (80-95); MPV 10.2 fL (8.0-11.0); Neutrophils % 63.1; Platelet Count 271 10^3/uL (130-400); RBC 3.94 10^6/uL (3.93-5.22); RDW 13.3 % (11.7-14.6); RDW-SD 53.4 fL; WBC 9.89 10^3/uL (4.4-10.8)
[2023-04-29 17:12] LABS: INR 0.9 (0.9-1.1); PTT Activated 21.4 sec (21.5-31.9); Prothrombin Time 9.3 sec (9.3-11.0)
[2023-04-29 17:17] LABS: ALT 22 U/L (14-59); AST 22 U/L (15-37); Albumin 3.6 g/dL (3.4-5.0); Alkaline Phosphatase 69 U/L (46-116); Anion Gap 9.3 mmol/L (3-11); BUN 8 mg/dL (7-18); Bilirubin, Total 0.9 mg/dL (0.2-1.0); CO2 27.7 mmol/L (21.0-32.0); CREATININE 0.7 mg/dL (0.55-1.02); Calcium 9.6 mg/dL (8.5-10.1); Chloride 104 mmol/L (98-107); Estimated GFR 91.26 (mL/min/1.73m2); Glucose 94 mg/dL (74-106); Magnesium 1.7 mg/dL (1.8-2.4); Potassium 3.7 mmol/L (3.5-5.1); Sodium 141 mmol/L (136-145); Total Protein 7.5 g/dL (6.4-8.2); Troponin I < 50 ng/L (<or=60)
[2023-04-29 17:23] LABS: NT-proBNP 411 pg/mL (<300)
[2023-04-29 17:32] LABS: Diff Comment RBC Morph Reviewed; Macrocytosis 2+
[2023-04-29] MEDS: Omnipaque 350 MG/ML 100 ML BTL IJ (17:40)
[2023-04-29] MEDS: Normal Saline - Diluent 50 ML VIAL IJ (17:40)
[2023-04-29] MEDS: Normal Saline Flush 10 ML SYR IVP (17:42)
--- NOTE | 2023-04-29 19:04 | NUR.NOTE ---
Report received by Ebony HOWARD, introduced self to pt, no needs verbalized at this time
--- NOTE | 2023-04-29 19:13 | DI.VRAD_ITS ---
PROCEDURE INFORMATION: Exam: CT Head Without Contrast Exam date and time: 04/29/2023 5:51 PM Age: 72 years old Clinical indication: Other: Loss of vision left eye; Prior surgery; Surgery date: 6+ months; Surgery type: Cataract surgery-years ago TECHNIQUE: Imaging protocol: Computed tomography of the head without contrast. COMPARISON: CT HEAD WO 07/19/2022 9:55 PM FINDINGS: Brain: There is no acute intracranial hemorrhage, mass effect or midline shift. No large acute territorial infarct identified. There are patchy regions of hypodensity in the periventricular and subcortical white matter, likely on the basis of chronic microvascular ischemic disease. Cerebral ventricles: The ventricles and sulci are prominent in size, which is at least in part due to global cerebral volume loss. Paranasal sinuses: Visualized sinuses are unremarkable. No fluid levels. Mastoid air cells: Visualized mastoid air cells are well aerated. Bones/joints: Unremarkable. No acute fracture. Soft tissues: Unremarkable. IMPRESSION: No acute intracranial hemorrhage, mass effect or midline shift. PROCEDURE INFORMATION: Exam: CTA Head With Contrast, Arteriography Exam date and time: 04/29/2023 5:51 PM Age: 72 years old Clinical indication: Other: Loss of vision left eye; Prior surgery; Surgery date: 6+ months; Surgery type: Cataract surgery-years ago TECHNIQUE: Imaging protocol: Computed tomographic angiography of the head with contrast. Exam focused on the arteries. 3D rendering (Not supervised by radiologist): MIP and/or 3D reconstructed images were created by the technologist. Radiation optimization: All CT scans at this facility use at least one of these dose optimization techniques: automated exposure control; mA and/or kV adjustment per patient size (includes targeted exams where dose is matched to clinical indication); or iterative reconstruction. Contrast material: OMNIPAQUE 350; Contrast volume: 100 ml; Contrast route: INTRAVENOUS (IV); COMPARISON: CT HEAD WO 07/19/2022 9:55 PM FINDINGS: ANTERIOR CIRCULATION: Right internal carotid artery: Intracranial segment is patent with no significant stenosis. No aneurysm. Right middle cerebral artery: No occlusion or significant stenosis. No aneurysm. Right anterior cerebral artery: No occlusion or significant stenosis. No aneurysm. Left internal carotid artery: Intracranial segment is patent with no significant stenosis. No aneurysm. Left middle cerebral artery: No occlusion or significant stenosis. No aneurysm. Left anterior cerebral artery: No occlusion or significant stenosis. No aneurysm. POSTERIOR CIRCULATION: Right vertebral artery: No occlusion or significant stenosis. No aneurysm. Left vertebral artery: No occlusion or significant stenosis. No aneurysm. Basilar artery: No occlusion or significant stenosis. No aneurysm. Right posterior cerebral artery: No occlusion or significant stenosis. No aneurysm. Left posterior cerebral artery: No occlusion or significant stenosis. No aneurysm. Brain: No definite mass, mass effect, or midline shift. Cerebral ventricles: No ventriculomegaly. Bones/joints: Unremarkable. No acute fracture. Soft tissues: Unremarkable. IMPRESSION: No large vessel stenosis or occlusion. PROCEDURE INFORMATION: Exam: CTA Neck With Contrast Exam date and time: 04/29/2023 5:51 PM Age: 72 years old Clinical indication: Loss of vision left eye; Prior surgery; Surgery date: 6+ months; Surgery type: Cataract surgery-years ago TECHNIQUE: Imaging protocol: Computed tomographic angiography of the neck with contrast. 3D rendering (Not supervised by radiologist): MIP and/or 3D reconstructed images were created by the technologist. Radiation optimization: All CT scans at this facility use at least one of these dose optimization techniques: automated exposure control; mA and/or kV adjustment per patient size (includes targeted exams where dose is matched to clinical indication); or iterative reconstruction. Contrast material: OMNIPAQUE 350; Contrast volume: 100 ml; Contrast route: INTRAVENOUS (IV); COMPARISON: CT HEAD WO 07/19/2022 9:55 PM FINDINGS: Right common carotid artery: No stenosis. No dissection or occlusion. Right internal carotid artery: No stenosis of the extracranial segment. No dissection or occlusion. The left ICA is retropharyngeal in location. Right external carotid artery: No occlusion or stenosis of the origin. Left common carotid artery: No stenosis. No dissection or occlusion. Left internal carotid artery: No stenosis of the extracranial segment. No dissection or occlusion. Left external carotid artery: No occlusion or stenosis of the origin. Right vertebral artery: No stenosis. No dissection or occlusion. Left vertebral artery: No stenosis. No dissection or occlusion. Soft tissues: Normal. No significant soft tissue swelling. Bones/joints: No acute fracture. Lungs: Paraseptal emphysema and ground-glass opacities noted throughout the partially visualized on bilateral lung alcantara. IMPRESSION: 1. No occlusion or significant stenosis. 2. No dissection. 3. Paraseptal emphysema and ground-glass opacities in the partially visualized bilateral lung alcantara. Correlate with clinical findings to exclude possible mild infectious/inflammatory etiology. REFERENCES: NASCET CRITERIA. The degree of stenosis in the cervical segment of the internal carotid artery is based on NASCET criteria. Normal is no stenosis. Mild is less than 50% stenosis. Moderate is 50-69% stenosis. Severe is 70% to 99% stenosis. Total occlusion is no detectable patent lumen. Dictated and Authenticated by: Ashly Warner MD. Ordering:JOHANNY Moe MD
[2023-04-29 19:25] LABS: Bilirubin Negative (Negative); Blood Negative (Negative); Clarity Clear (Clear); Glucose Negative (Negative); Ketones Negative (Negative); Leukocyte Esterase Negative (Negative); Nitrite Positive (Negative); Urobilinogen 0.2 mg/dL (Up to 0.2); pH 6.5 (5-8)
[2023-04-29 19:42] LABS: Bacteria Moderate HPF (Negative); C & S Indicated? Yes; Casts Negative LPF (Negative); Crystals Negative HPF (Negative); Epithelial Cells Few HPF (Negative); Mucus Negative (Negative); RBC Negative HPF (0-2)
--- NOTE | 2023-04-29 19:55 | NUR.NOTE ---
Referral to Care Management to establish pcp in one week for edema, elevated bp.Nursing Note:
== END 2023-04-29 20:07 | disposition home or self-care (01) ==
PROVIDERS: Emergency Provider Registered Nurse Emergency
DX: H53.9 Unspecified visual disturbance (principal); I10 Essential (primary) hypertension; R06.02 Shortness of breath; R00.1 Bradycardia, unspecified; Z82.49 Family history of ischemic heart disease and other diseases of the circulatory system; Z87.891 Personal history of nicotine dependence; Z79.899 Other long term (current) drug therapy
CPT/HCPCS: 36415; 70496; 70498; 80053; 87077; 93005; 99285; 81003; 81015; 83735; 83880; 84484; 85025; 85610; 85730; 87086; 87186; 93010; 99284; J3490

== ENCOUNTER 2023-05-04 17:18 | Emergency (ER) | payer MEDICARE, BC, SELFPAY ==
[2023-05-04] VITALS (10 sets, daily range): BP systolic 135–157; BP diastolic 69–100; PULSE 66–85; RESP 16; TEMP 36.6; O2SAT 99
--- NOTE | 2023-05-04 17:45 | DI.CT_ITS ---
Exam(s) CT HEAD WO EXAM: CT HEAD WO CLINICAL HISTORY: headache. TECHNIQUE: Imaging Protocol: Axial computed tomography images with coronal and sagittal reformatted images were created and reviewed COMPARISON: CT CT BRAIN NECK CTA from 04/29/2023 FINDINGS: There are no skull fractures. There is no fluid in the visualized paranasal sinuses. There is no evidence of intracranial hemorrhage, mass effect, or shift of midline structures. There are no extra-axial fluid collections. The ventricles are not enlarged or shifted and there is no blo od within the ventricular system nor within the basal cisterns. Again noted is some periventricular hypodensity consistent with chronic small vessel disease. Small lacunar infarct in the anterior limb of the right internal capsule noted. Also in the external capsu les, these findings being unchanged. No obvious new territorial infarct. IMPRESSION: Chronic white matter ischemic changes. No obvious new territorial infarction. No evidence of intrac ranial hemorrhage. If clinically indicated follow-up MRI with diffusion imaging can be performed for added sensitivity a nd specificity. RADIATION DOSE DELIVERED: 674.95mGy.cm Total DLP DATA REPOSITORY: All CT scans at this facility are submitted to the National Radiology Data Registry (NRDR) Dose Index Registry (DIR) with the [employer] ([employer]). RADIATION OPTIMIZATION: All CT scans at this facility use at least one of these dose optimization te chniques: automated exposure control; mA and/or kV adjustment per patient size (includes targeted exa ms where dose is matched to clinical indication); or iterative reconstruction.
--- NOTE | 2023-05-04 17:57 | ED.GENADUL_ITS ---
Discharge Plan Disposition Patient Disposition: Home Discharge Details Chief Complaint: Headache Clinical Impression: Right sided temporal headache, Visual disturbance Primary Care Provider: None,None ED Provider: Alaina Marie Home Meds and New Rx's Prescriptions: No Action triamcinolone acetonide 0.1 % cream 1 applic TP .qod Rx Instructions: no longer using furosemide 20 mg tablet 20 mg PO DAILY Qty: 20 0RF Rx Instructions: Take 1 tablet by mouth in the morning daily. Discharge Instructions Instructions: General Headache (ED) Additional Instructions: Keep your follow-up appointment with your primary care on the of this month. You will be contacted by the neurologist for a follow-up appointment. Return here for any new or worrisome symptoms such as weakness of the arms or legs problems with speech gait or memory. Discharge Data Discharge Physician: Alaina Marie Medical Decision Making This is a 72-year-old female who presents with a right temporal headache which has been intermittent for several days and which is gotten worse today. She denies any change in caffeine intake or trauma. No history of migraines. Her neurologic exam is normal. My plan is to obtain CT of the head without contrast and if normal she will be discharged home with outpatient follow-up with neurology and primary care. She already has an appoint with a primary care provider on the of this month. I doubt that she has an intracranial hemorrhage given that she has a normal neurologic exam. She reached maximum intensity at 5 hours after the onset of the headache today. I do not think she has a subarachnoid hemorrhage or meningitis. I do not see any indication for LP. We will check blood work. She has not had any recent tick bites and does not have any pets so a tickborne illness is very unlikely. I have discussed this with the family who denies any exposure to ticks, rashes or Differential Diagnosis Differential Diagnosis: Intracranial hemorrhage, migraine, temporal arteritis, tension headache. Medical Records Medical records reviewed: Yes I reviewed the patient's medical records. Imaging Data Radiologic Study: Imaging: CT Scan Radiologist's impression: IMPRESSION: Chronic white matter ischemic changes. No obvious new territorial infarction. No evidence of intracranial hemorrhage. If clinically indicated follow-up MRI with diffusion imaging can be performed for added sensitivity and specificity. Lab Data Lab results reviewed: Yes I reviewed the patient's lab results. Lab results narrative: I did not order CBC but I do not see indication for adding it on. HPI General Date/Time Provider Initiated Documentation: 05/04/23 17:27 . History of Present Illness with intensity rated at 8. Quality is described as sharp and constant, Patient did receive the following treatments prior to arrival, NSAID HPI Narrative: The patient is a 72-year-old female whose son in March after an overdose, who had a history of heavy alcohol use drinking vodka every day. She stopped drinking about the time that her son and her son-in-law tells me that she did not have any withdrawal symptoms. She was recently diagnosed with a retrobulbar hemorrhage behind the left eye. She was seen here on April 29 when she was diagnosed by CT scan. She was transferred to [facility] and discharged and is awaiting follow-up with ophthalmology. Her symptoms on the included visual disturbances which she states have not changed. She has had mild headaches for several days but today had headache which began at about 10 AM and reach maximum severity approximately 5 hours later. The headache is located in the right taoist. She denies any photophobia fever chills or rash. She denies any stiff neck or trauma. She denies any aggravating or alleviating factors. She did take 400 mg of ibuprofen prior to arrival. She is right-hand dominant. At maximum the pain was 10 out of 10. The patient also has a history of sciatica which affects her gait. But she has not had any changes in her speech and gait according to her family since the onset of the headache. Currently her headache is 6-8 out of 10 in severity and located in the right taoist. The patient does not have a history of migraines but has had some mild headaches since her diagnosis of bleeding behind the left eye. Related Data Home Medications Medication Instructions Recorded Confirmed triamcinolone acetonide 0.1 % 1 applic topical .qod 04/02/20 topical cream furosemide 20 mg tablet 20 mg PO DAILY edema #20 tabs 04/29/23 Previous Rx's Medication Instructions Recorded furosemide 20 mg tablet 20 mg PO DAILY edema #20 tabs 04/29/23 Allergies Allergy/AdvReac Type Severity Reaction Status Date / Time Penicillins Allergy Unknown ITCHING, Unverified 04/29/23 15:05 RASH General Stated Complaint: Headache CHANCE: 3 Review of Systems Narrative: see hpi Constitutional Constitutional: Denies chills and Denies fever(s) Comments: She does endorse mild anorexia but no nausea or vomiting Eyes Eyes: Reports as per HPI Comments: As above. She does describe seeing squiggly lines but this is unchanged since April 29 ENT Ears, Nose, Mouth, and Throat: Denies dizziness Comments: The patient wears hearing aids but is only wearing 1 in the left ear Cardiovascular Cardiovascular: Denies chest pain Comments: The patient was recently started on a short course of Lasix for what the daughter describes as fluid around the heart. She also had peripheral edema which has also improved since starting Lasix. Respiratory Comments: Occasional shortness of breath. Gastrointestinal Comments: Mild anorexia Genitourinary Comments: No urinary symptoms Musculoskeletal Comments: The patient does have a history of sciatica Neurologic Neurologic: Reports as per HPI, Denies abnormal movements, Denies abnormal speech, Denies behavioral changes, Denies confusion, Denies dizziness, Denies localized weakness, Reports other visual disturbances, Denies convulsions, Denies seizure-like activity, Denies sensory deficit and Denies paresthesias Psychiatric Psychiatric: Denies behavioral changes and Denies confusion Comments: The patient does have a history of heavy alcohol use. She has not been drinking for 4 to 6 weeks PFSH All Active Problems (Updated 05/04/23 @ 19:26 by Alaina Marie MD) Visual disturbance (Acute) Right sided temporal headache (Acute) Medical History (Updated 05/04/23 @ 19:26 by Alaina Marie MD) HTN (hypertension) Surgical History History of cataract surgery Social History Smoking/Tobacco Use Status: Former Tobacco Use Smoking risk assessment performed?: Yes Alcohol Intake: former Drug use: Never Details: former alcohol use in past. 4-5 drinks/night for years Housing: house Do you feel safe at home: Yes Do you feel safe in your relationship?: Yes Exam Narrative Exam Narrative: The patient is well-developed well-nourished female lying on the stretcher no acute distress. Const General: cooperative, healthy appearing, comfortable, no acute distress, well developed, well groomed and well hydrated Nutritional Appearance: average body habitus and well nourished Orientation: alert, awake and oriented x3 [facility] Head: normal to inspection, normocephalic and atraumatic Ears: hearing grossly normal bilaterally and other (There is a hearing aid in the left ear) General nose exam: external nose normal, nares normal and no nasal discharge Face and sinus: normal facial exam and face symmetric Mouth: oral mucosae normal, lip normal, tongue normal, oropharynx normal, moist mucous membranes and other (Normal phonation. The patient is handling secretions.) Throat: posterior oropharynx normal and uvula midline Eyes General: appearance normal, both eyes and all related structures Eyelids: eyelids normal Conjunctivae: conjunctivae normal Sclera: sclerae normal Cornea: corneas normal Pupils: PERRL EOM: EOM intact bilaterally and No nystagmus Other: The patient has had cataract surgery. I was unable to visualize the retina. There is no ptosis. No photophobia Neck Neck: normal visual inspection, full ROM, no lymphadenopathy, no meningeal signs, trachea midline and supple Lymphatic: no lymphadenopathy noted Chest Chest: normal inspection of the chest Resp Effort & Inspection: normal respiratory effort, able to speak in complete sentences, no audible wheezes, no nasal flaring, no respiratory distress, no retractions, no stridor, not tachypneic, no tracheal deviation, no use of accessory muscles, No prolonged expiratory phase and other (Normal inspiratory to expiratory ratio.) Auscultation: clear to auscultation bilaterally, no rales, no rhonchi, no wheezes and no rubs Tactile Fremitus: tactile fremitus absent Cardio Jugular venous pressure: no JVD Palpation: normal PMI Rate: regular rate Rhythm: regular rhythm Heart Sounds: S1 normal, S2 normal, no gallops, no murmurs and no rubs GI Inspection: normal to inspection and non-distended Palpation: soft, no hepatosplenomegaly, no guarding and nontender Percussion: normal to percussion Auscultation: normal bowel sounds General: No CVA tenderness Back/Spine/Pelvis Back: no CVA tenderness and No back tenderness Cervical Spine: normal cervical lordosis, cervical ROM normal, No cervical muscular tenderness, No pain with cervical ROM, No cervical spinal tenderness and No step off deformity Thoracic/Lumbar Spine: thoracic and lumbar spine normal to inspection, No thoracic spinal tenderness and No lumbar spinal tenderness Pelvis: no pain with anterior-posterior compression and no pain with lateral compression Skin General skin exam: no rashes or lesions noted, turgor normal, no petechiae, no purpura and other (Skin is normal for ethnicity.) Lesions: no lesions Rashes: no rashes Trauma: no lacerations or abrasions Neuro General: patient alert, patient awake, patient oriented x3, moves all extremities, no meningeal signs, no focal motor deficits and CN's II-XI intact bilaterally Cranial Nerves: CN's II-XI intact bilaterally, PERRL, accommodation normal, EOM intact bilaterally, no nystagmus, facial strength normal, tongue midline, hearing normal and no nystagmus Cognition: normal cognition Speech: speech normal Gait: normal gait Motor: muscle tone normal throughout and strength 5/5 throughout Sensory Exam: no sensory deficits noted Other: No pronator drift. Normal [id number] bilaterally. Reflexes 1-2+ and symmetric in her bicep brachioradialis patellar and ankle jerks. No Babinski is present Extrem General: normal to inspection, full ROM, capillary refill normal, no clubbing, cyanosis or edema and no calf tenderness Other: Mild symmetric bilateral pedal edema Psych Appearance: grossly normal Affect: normal affect Attitude: cooperative Thought Process: normal Thought Content: normal Insight: insight good Judgment: judgment good Other: The patient appears to have capacity make medical decisions. Course Reevaluation(s) Time: 19:27 Reevaluation: The patient feels slightly improved. She denies any worsening of her symptoms. I have advised she follow-up with neurology and primary care and return here for any new or worrisome symptoms. She voiced understanding agree with the discharge plan. All her questions and concerns were addressed prior to discharge. Vital Signs Vital signs: Vital Signs Temperature 36.6 C 05/04/23 17:21 Pulse 85 05/04/23 17:21 Respiratory Rate 16 05/04/23 17:21 Blood Pressure 157/81 H 05/04/23 17:21 Pulse Oximetry 99 05/04/23 17:21 Temperature 36.6 C 05/04/23 17:21 Temperature Source Skin 05/04/23 17:21 Pulse 85 05/04/23 17:21 Respiratory Rate 16 05/04/23 17:21 Respiratory Effort Normal 05/04/23 17:32 Blood Pressure 157/81 H 05/04/23 17:21 Blood Pressure Position Sitting 05/04/23 17:21 Pulse Oximetry 99 05/04/23 17:21 Oxygen Delivery Method Room Air 05/04/23 17:21 Oxygen Flow Rate 0 05/04/23 17:21 Critical Care Time Critical Care Time Critical Care Time: Yes Total Critical Care Time: 36 Attestation: Critical care time involved time at the bedside. Discussion with family members. Review of previous ED visit and review of labs and radiographs
[2023-05-04] MEDS: ACETAMINOPHEN 1,000 MG/100 ML BTL 400 MG IVPB (18:19)
[2023-05-04 18:28] LABS: ESR 13 mm/hr (0-30)
[2023-05-04 18:40] LABS: ALT 22 U/L (14-59); AST 18 U/L (15-37); Albumin 3.6 g/dL (3.4-5.0); Alkaline Phosphatase 70 U/L (46-116); Anion Gap 9.5 mmol/L (3-11); BUN 10 mg/dL (7-18); Bilirubin, Total 0.8 mg/dL (0.2-1.0); CO2 28.5 mmol/L (21.0-32.0); CREATININE 0.8 mg/dL (0.55-1.02); Calcium 9.5 mg/dL (8.5-10.1); Chloride 101 mmol/L (98-107); Estimated GFR 77.75 (mL/min/1.73m2); Glucose 101 mg/dL (74-106); Potassium 3.9 mmol/L (3.5-5.1); Sodium 139 mmol/L (136-145); Total Protein 7.4 g/dL (6.4-8.2)
--- NOTE | 2023-05-04 19:30 | NUR.NOTE ---
Referral faxed to [facility] for a f/u appt after her pcp appt on 05/19/23 for headache. Patient is new to [facility].Nursing Note:
== END 2023-05-04 19:44 | disposition home or self-care (01) ==
PROVIDERS: Emergency Provider Emergency Medicine Emergency Medical Services
DX: R51.9 Headache, unspecified (principal)
CPT/HCPCS: 80053; 85652; 96365; 99284; 70450; J0131

== ENCOUNTER 2023-05-19 12:53 | Outpatient (REF) | payer MEDICARE, BC, SELFPAY ==
[2023-05-19 16:24] LABS: Anion Gap 8.8 mmol/L (3-11); BUN 13 mg/dL (7-18); CO2 26.2 mmol/L (21.0-32.0); CREATININE 0.8 mg/dL (0.55-1.02); Chloride 106 mmol/L (98-107); Estimated GFR 77.75 (mL/min/1.73m2); Glucose 98 mg/dL (74-106); Potassium 4.6 mmol/L (3.5-5.1); Sodium 141 mmol/L (136-145)
== END 2023-05-19 12:54 | disposition home or self-care (01) ==
LOC: NCHCN 12:53
PROVIDERS: Visit Provider Nurse Practitioner Family
DX: I10 Essential (primary) hypertension (principal); F10.11 Alcohol abuse, in remission; Z79.899 Other long term (current) drug therapy
CPT/HCPCS: 80048

== ENCOUNTER → 2023-06-12 16:29 | Outpatient (CLI) | payer MEDICARE, BC, SELFPAY ==
--- NOTE | 2023-06-12 | DI.RAD_ITS ---
Exam(s) XR HIP LT COMPLETE AP PELVIS EXAM: XR HIP LT COMPLETE AP PELVIS CLINICAL HISTORY: LT HIP PAIN, M25.552. TECHNIQUE: 2D digital imaging was performed. COMPARISON: No exams were available for comparison FINDINGS: Two views: No evidence of pelvic nor hip fracture. There is moderate narrowing of the left hip joint noted. Mi ld narrowing of the right hip joint. Left femoral head osteophytes noted. IMPRESSION: Degenerative changes in the hips, more so on the left side. DATA REPOSITORY: RADIATION DOSE DELIVERED:
--- NOTE | 2023-06-12 | DI.RAD_ITS ---
Exam(s) XR SHOULDER LT COMPLETE 2+V EXAM: XR SHOULDER LT COMPLETE 2+V CLINICAL HISTORY: LT SHOULDER PAIN, M25.512. TECHNIQUE: 2D digital imaging was performed. COMPARISON: No exams were available for comparison FINDINGS: Five views No evidence of acute fracture nor dislocation nor abnormal soft tissue calcifications in the subacrom ial space. There is mild diminution of the subacromial space. AC joint appears unremarkable. No ob vious degenerative changes in the glenohumeral joint. Bone density is age-appropriate. No osseous l esions. IMPRESSION: Mild findings. No fractures nor dislocation. DATA REPOSITORY: RADIATION DOSE DELIVERED:
== END ==
PROVIDERS: Visit Provider Nurse Practitioner Family
DX: M25.512 Pain in left shoulder (principal)
CPT/HCPCS: 73030; 73502

== ENCOUNTER → 2023-08-01 08:38 | Outpatient (BNVA) | payer MEDICARE, BC, SELFPAY | PROVIDERS: PCP Nurse Practitioner Family; Referring Provider Nurse Practitioner Family; Visit Provider Student in an Organized Health Care Education/Training Program | DX: M75.102 Unspecified rotator cuff tear or rupture of left shoulder, not specified as traumatic (principal) | CPT/HCPCS: 20610; 99213; J1030 ==

== ENCOUNTER 2023-09-11 15:05 | Outpatient (CLI) | payer MEDICARE, BC, SELFPAY ==
--- NOTE | 2023-09-11 13:45 | DI.RAD_ITS ---
Exam(s) XR PELVIS AP EXAM: XR PELVIS AP CLINICAL HISTORY: L THR Planning. TECHNIQUE: 2D digital imaging was performed. Single AP view. Template ball in place. COMPARISON: CR XR HIP LT COMPLETE AP PELVIS from 06/12/2023 FINDINGS: BONES: No acute fracture is present. No bony destructive lesion is seen. JOINTS: No dislocation present. Twenty space narrowing and periarticular spurring involving the left hip. Mild degenerative changes of the right hip and SI joints. Severe degenerative changes lower lumbar spine. SOFT TISSUE: Normal. IMPRESSION: Advanced degenerative changes of the left hip. DATA REPOSITORY: RADIATION DOSE DELIVERED:
== END 2023-09-11 15:06 | disposition home or self-care (01) ==
LOC: DIORS 15:05
PROVIDERS: PCP Nurse Practitioner Family; Referring Provider Nurse Practitioner Family; Visit Provider Student in an Organized Health Care Education/Training Program
DX: M16.12 Unilateral primary osteoarthritis, left hip (principal)
CPT/HCPCS: 99213; 72170

== ENCOUNTER → 2023-10-04 08:54 | Outpatient (BNVA) | payer MEDICARE, BC, SELFPAY | PROVIDERS: PCP Nurse Practitioner Family; Referring Provider Nurse Practitioner Family; Visit Provider Student in an Organized Health Care Education/Training Program | DX: M75.102 Unspecified rotator cuff tear or rupture of left shoulder, not specified as traumatic (principal); M12.812 Other specific arthropathies, not elsewhere classified, left shoulder | CPT/HCPCS: 99213 ==

== ENCOUNTER 2023-10-12 15:05 | Outpatient (REF) | payer MEDICARE, BC, SELFPAY ==
[2023-10-12 16:26] LABS: HCT 40.2 % (36.0-46.0); HGB 13.4 g/dL (11.2-15.7); MCH 31.8 pg (27.0-33.0); MCHC 33.3 % (32.0-36.0); MCV 95 fL (80-95); MPV 10.6 fL (8.0-11.0); Platelet Count 300 10^3/uL (130-400); RBC 4.22 10^6/uL (3.93-5.22); RDW 12.9 % (11.7-14.6); RDW-SD 44.9 fL; WBC 6.76 10^3/uL (4.4-10.8)
[2023-10-12 17:11] LABS: ALT 19 U/L (14-59); AST 22 U/L (15-37); Albumin 3.6 g/dL (3.4-5.0); Alkaline Phosphatase 63 U/L (46-116); Anion Gap 4.4 mmol/L (3-11); BUN 13 mg/dL (7-18); Bilirubin, Total 0.5 mg/dL (0.2-1.0); CO2 29.6 mmol/L (21.0-32.0); CREATININE 0.7 mg/dL (0.55-1.02); Calcium 9.5 mg/dL (8.5-10.1); Calculated LDL 164 mg/dL (<100); Chloride 105 mmol/L (98-107); Cholesterol 242 mg/dL (<200); Glucose 98 mg/dL (74-106); HDL Cholesterol 62 mg/dL (40-60); Potassium 5.1 mmol/L (3.5-5.1); Sodium 139 mmol/L (136-145); Total Protein 7.2 g/dL (6.4-8.2); Triglyceride 82 mg/dL (<150)
[2023-10-12 17:21] LABS: Vitamin D 25 Total 24.9 ng/mL (30-100)
== END 2023-10-12 15:06 | disposition home or self-care (01) ==
LOC: NCHCN 15:05
PROVIDERS: PCP Nurse Practitioner Family; Visit Provider Nurse Practitioner Family
DX: Z01.818 Encounter for other preprocedural examination (principal)
CPT/HCPCS: 80053; 80061; 82306; 85027

== ENCOUNTER → 2023-10-13 10:52 | Outpatient (BNVA) | payer MEDICARE, BC, SELFPAY | PROVIDERS: PCP Nurse Practitioner Family; Referring Provider Nurse Practitioner Family | DX: M16.12 Unilateral primary osteoarthritis, left hip (principal) | CPT/HCPCS: 99214 ==

== ENCOUNTER 2023-10-17 05:55 | Day surgery (SDC) | payer MEDICARE, BC, SELFPAY ==
[2023-10-17] VITALS (13 sets, daily range): BP systolic 113–167; BP diastolic 55–98; PULSE 57–73; RESP 14–24; TEMP 35.9–36.5; O2SAT 94–99; BMI 29.1
[2023-10-17] MEDS: Celecoxib 200 MG CAP 400 MG PO (06:37)
[2023-10-17] MEDS: Acetaminophen 500 MG TAB 1000 MG PO (06:37)
[2023-10-17] MEDS: Lactated Ringers 1,000 ML 80 ML IV (06:55)
--- NOTE | 2023-10-17 06:59 | ANES.PREOP_ITS ---
General Info Date of Service Date Performed: 10/17/23 Height: 5 ft 2 in Weight: 72.2 kg Body Mass Index (BMI): 29.1 Surgical Procedure: Operation Date: 10/17/23 07:50 Proposed Procedure Side Surgeon p Hip Total Hip Anterior, Corail Short Neck Left Kulwant Jeffrey MD Meds Allergies and Home Medications Allergies Allergy/AdvReac Type Severity Reaction Status Date / Time Penicillins Allergy Unknown ITCHING, Verified 10/17/23 06:12 RASH Home Medication Medication Instructions Recorded acetaminophen 500 mg tablet 1,000 mg (2 x 500 mg) PO Q8H PRN 10/17/23 pain #90 tabs aspirin 81 mg tablet,delayed 81 mg PO BID 30 days #60 tabs 10/17/23 release celecoxib 200 mg capsule (Celebrex) 200 mg PO BID PRN #60 caps 10/17/23 dexamethasone 4 mg tablet 4 mg PO DAILY #2 tabs 10/17/23 docusate sodium 100 mg capsule 100 mg PO BID #30 caps 10/17/23 (Colace) multivitamin (Daily Multi-Vitamin 1 tab PO DAILY 10/17/23 tablet) oxycodone 5 mg tablet 5 mg PO Q6H PRN #12 tabs 10/17/23 pantoprazole 40 mg tablet,delayed 40 mg PO DAILY #14 tabs 10/17/23 release Current Visit Medications: Current Medications Generic Name Dose Route Start Last Admin Trade Name Freq PRN Reason Stop Dose Admin Acetaminophen 1,000 mg 10/17/23 06:00 10/17/23 06:37 Acetaminophen 500 Mg Tab PO 11/16/23 05:59 1,000 mg PREOP NOELLE Administration Celecoxib 400 mg 10/17/23 06:00 10/17/23 06:37 Celecoxib 200 Mg Cap PO 11/16/23 05:59 400 mg PREOP NOELLE Administration Tranexamic Acid 1,000 mg/ 60 mls @ 360 mls/hr 10/17/23 06:00 Sodium Chloride IV 11/16/23 05:59 PREOP NOELLE Ringer's Solution 1,000 mls @ 80 mls/hr 10/17/23 06:00 IV 10/17/23 23:59 INFUSION NOELLE Cefazolin Sodium/Dextrose 2 gm in 50 mls @ 100 mls/hr 10/17/23 06:00 Ancef Duplex IVPB 10/17/23 23:59 PREOP NOELLE IV Miscellaneous Supplies 1 each 10/17/23 06:00 Iv Access IV 10/17/23 23:59 DIRECTED NOELLE Sodium Chloride 0 ml 10/17/23 06:00 Normal Saline Flush 10 Ml Syr IV 10/17/23 23:59 PRN PRN Sodium Chloride 0 ml 10/17/23 06:00 Normal Saline 10 Ml Vial IJ 10/17/23 23:59 DIRECTED PRN Sterile Water 0 ml 10/17/23 06:00 Water,Injection,Sterile 10 Ml Vial IJ 10/17/23 23:59 DIRECTED PRN PFSH Active Problems Active Problems: Problem Status Onset Code Osteoarthritis of left hip M16.12 Left rotator cuff tear arthropathy M75.102, M12.812 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 Cataract, bilateral H26.9 Vitreous hemorrhage H43.10 Elevated blood pressure reading in office without diagnosis of hypertension R03.0 Medical History Medical History Former tobacco use Alcohol abuse HTN (hypertension) Surgical History Surgical History Hx of tonsillectomy History of cataract surgery Tobacco Smoking/Tobacco Use Status: Former Tobacco Use Alcohol Alcohol Intake: former Substance Use Substance use: Never Substance use type: does not use Vital Signs and Lab Results Vital Signs Most Recent Vital Signs in EMR: Most Recent Vital Signs Temp Pulse Resp BP Pulse Ox 36.5 C 73 14 167/98 H 99 10/17/23 06:25 10/17/23 06:25 10/17/23 06:25 10/17/23 06:25 10/17/23 06:25 Lab Results Blood Type / Crossmatch: No Data to Display Complete Blood Count: White Blood Count 6.76 10^3/uL (4.4-10.8) 10/12/23 11:20 Red Blood Count 4.22 10^6/uL (3.93-5.22) 10/12/23 11:20 Hemoglobin 13.4 g/dL (11.2-15.7) 10/12/23 11:20 Hematocrit 40.2 % (36.0-46.0) 10/12/23 11:20 Platelet Count 300 10^3/uL (130-400) 10/12/23 11:20 Complete Metabolic Panel: Sodium 139 mmol/L (136-145) 10/12/23 11:20 Potassium 5.1 mmol/L (3.5-5.1) 10/12/23 11:20 Chloride 105 mmol/L (98-107) 10/12/23 11:20 Carbon Dioxide 29.6 mmol/L (21.0-32.0) 10/12/23 11:20 BUN 13 mg/dL (7-18) 10/12/23 11:20 Creatinine 0.7 mg/dL (0.55-1.02) 10/12/23 11:20 Est GFR (CKD-EPI 2020) 90.70 (mL/min/1.73m2) 10/12/23 11:20 Calcium 9.5 mg/dL (8.5-10.1) 10/12/23 11:20 Albumin 3.6 g/dL (3.4-5.0) 10/12/23 11:20 Glucose 98 mg/dL (74-106) 10/12/23 11:20 Liver Function Panel: Alanine Aminotransferase (ALT/SGPT) 19 U/L (14-59) 10/12/23 11: 20 Aspartate Amino Transf (AST/SGOT) 22 U/L (15-37) 10/12/23 11:20 Coagulation Panel: No Data to Display Cardiac Panel: No Data to Display Arterial Blood Gas: No Data to Display Venous Blood Gas: No Data to Display Pancreas Panel: No Data to Display Thyroid Panel: No Data to Display Infectious Disease: No Data to Display Blood Cultures: No Data to Display Toxicology Panel: No Data to Display Imaging and Studies Imaging and Studies Study information below may be from another EMR and interpreted by another provider. Please see original notes in EMR for more complete details. EKG Summary: 04/29/2023: Exam: Resting ECG Reason for Exam: Visual disturbances Patient Location: E HR:59 bpm ECG Measurements Heart Rate 59 AXIS NH 136 P 43 QRSd 86 QRS -12 QT 464 T-11 QTc 461 Conclusion Sinus bradycardia...rate< [address] segment or T wave abnormalities to suggest occlusive KS I have reviewed and I agree with the emergency room physician's ECG interpretation. Anesthesia Assessment and Plan Anesthesia History Personal History: No History of Anesthesia Complications Family History: No Family History of Anesthesia Complications Exercise Tolerance Exercise Tolerance: Metabolic Equivalents>4 Pertinent Negatives Pertinent Negatives: No Symptoms of GERD, No Major Cardiovascular Symptoms or Complaints and No Major Pulmonary Symptoms or Complaints Cardiac & Pulmonary Exam Cardiac Exam: Normal S1/S2 Heart Sounds Pulmonary Exam: Clear Bilateral Breath Sounds Implantable Cardiac Device Does patient have a Pacemaker or an ICD?: No Airway Exam Known Difficult Airway: No Mallampati Class: 2 Mouth Opening: Normal (> 3cm) Thyromental Distance: Greater than 3 cm Neck Range of Motion: Full ROM Neck Circumference: Normal Teeth Condition: Normal Dentition ASA Classification ASA Score: ASA 2 Emergency Case?: No NPO Status NPO Status: NPO Clears >2 hours, Solids >8 hours Anesthesia Plan Resuscitation Status: Full Code Anesthesia Technique: Spinal Anesthesia Airway Planned: Natural Airway Monitors Used: Standard Monitors
--- NOTE | 2023-10-17 07:18 | W.PM.DSUDISC ---
Date of service: 10/17/23 Time of Service: 07:22 Discharge Plan Disposition Patient Disposition: Home Condition: Good Discharge Details Reason For Visit: Left hip DJD Attending Provider: Kulwant Jeffrey Primary Care Provider: Jeimy Vee Home Meds and New Rx's Prescriptions: New celecoxib [Celebrex] 200 mg capsule 200 mg PO BID PRNQty: 60 0RF Rx Instructions: Take one tablet twice daily for pain and inflammation aspirin 81 mg tablet,delayed release (DR/EC) 81 mg PO BID 30 Days Qty: 60 0RF acetaminophen 500 mg tablet 1,000 mg PO Q8H PRN Qty: 90 0RF Rx Instructions: Take two tablets up to every 8 hours as needed for pain pantoprazole 40 mg tablet,delayed release (DR/EC) 40 mg PO DAILY Qty: 14 0RF dexamethasone 4 mg tablet 4 mg PO DAILY Qty: 2 0RF Rx Instructions: Take one tablet once daily for two days docusate sodium [Colace] 100 mg capsule 100 mg PO BID Qty: 30 0RF tramadol 50 mg tablet 50 mg PO Q4H PRN (Reason: severe postoperative pain) Qty: 18 0RF Rx Instructions: Take one tablet up to every 4 hours as needed for severe pain Continued multivitamin [Daily Multi-Vitamin] Tablet 1 tab PO DAILY Discontinued acetaminophen [Tylenol] 325 mg tablet 325 mg PO ONCE PRN Patient Comments: pt. states she took 2 yesterday, unsure of strength Discharge Instructions Additional Instructions: Total Hip Discharge Instructions Activity: The most important activity is to walk. You should try to take short walks a few times a day. You have no restrictions on movement or positioning, but do not try to force what you do. You will find some stiffness and weakness with hip flexion (lifting your knee). Do not try to strengthen this too early, continue to practice walking and stairs and this will come. - Outpatient physical therapy can be helpful to help return you to a normal gait and improve your flexibility and strength. This can start around 2 weeks. For some patients, it?s not necessary. Usually this is determined at the time of discharge or at the first post-operative visit. - You should wear the MAR hose on both legs for 2 weeks. Dressing: Keep the surgical dressing in place for at least one week. After the first week it may be removed and replace with light gauze and tape or nothing. It may get wet after 3 days but avoid soaking the dressing. If it gets wet, just lightly pat dry. It is important to always keep some gauze between skin folds, especially when you are sitting. Spend some time with the wound exposed when you are lying flat as the incision does wrinkle onto itself. Medications: - You should take Tylenol and an anti-inflammatory Celebrex as your primary pain control medications. If the Celebrex is too expensive or not covered, please call the office for another alternative (Advil/Ibuprofen or Naproxen/Aleve). - You have been prescribed a stronger pain medication Tramadol for breakthrough pain, take as needed as prescribed. - You have also been prescribed a stomach acid reduction agent Pantoprozole to help reduce stomach acid and reflux. - You have also been prescribed Decadron to help with post-operative nausea and pain. You will take this for two days starting tomorrow. - You will be taking Aspirin 81mg twice a day for DVT prevention unless instructed otherwise. - If you have constipation you should take Colace (which has been prescribed) or Miralax (which is available [id number]). It takes most people 3-4 days to have a bowel movement. Follow-up: 2 weeks If you have any acute concerns or questions, please do not hesitate to contact the office at [phone]. You may contact Dr. Jeffrey with any questions after hours through the hospital at [phone] or on his cell phone at [phone]. Stand Alone Forms: Anesthesia Discharge Inst., [place] ([facility]) Referrals: Kulwant Jeffrey MD [ [facility] STAFF PHYSICIAN] - 10/30/23 1:30 pm Equipment/Supplies: Walker Activity:: Elevate Remove Dressings/Wound Care:: Do Not Remove Shower/Bathe:: 72 hours and Cover Diet:: As Tolerated Discharge Orders Discharge Orders: Discharge Order (Routine); Ordered 10/17/23 Ordered By: Sara Newberry
[2023-10-17] MEDS: ceFAZolin 2 GM/50 ML BAG IVPB (07:46)
--- NOTE | 2023-10-17 09:20 | DI.RAD_ITS ---
Exam(s) XR HIP LT IN OR EXAM: XR HIP LT IN OR CLINICAL HISTORY: Osteoarthritis of left hip. TECHNIQUE: 2D digital imaging was performed. COMPARISON: No exams were available for comparison FINDINGS: 3 views Possibly provided during hip arthroplasty. See procedure report for details. Total fluoroscopy time 31 seconds IMPRESSION: Radiation exposure index/cumulative dose: shanice Randolph= 3.226 mGy DATA REPOSITORY: RADIATION DOSE DELIVERED:
[2023-10-17] MEDS: fentaNYL 100 MCG/2 ML VIAL IVP ×2 (10:18→10:37)
[2023-10-17] MEDS: LORazepam 2 MG/ML VIAL 0.5 MG IVP (10:36)
[2023-10-17] MEDS: traMADol 50 MG TAB PO (11:41)
--- NOTE | 2023-10-17 12:38 | PT.INIE ---
PT Notes Visit Reasons: Left hip DJD Physical Therapy Day Surgery Initial Evaluation Date: 10/17/2022 Referring Doctor: JORDYN Vazquez PT Orders: PT CONSULT: S/P Ortho surgery Precautions: WBAT on the left LE with AD. Patient Profile/Admitting Diagnosis: Jennie is a 73-year-old female with degenerative joint disease of the left hip and is status post left total hip arthroplasty on postoperative day 0. PMHX: All Active Problems (Updated 10/06/23 @ 14:13 by Sara Newberry) Osteoarthritis of left hip (Chronic) Left rotator cuff tear arthropathy (Acute) Retinal hole of right eye (Acute) Cataract, bilateral (Acute) Vitreous hemorrhage (Acute) Elevated blood pressure reading in office without diagnosis of hypertension (Acute) Medical History (Updated 10/06/23 @ 14:13 by Sara Newberry) Former tobacco use Alcohol abuse HTN (hypertension) Surgical History History of cataract surgery Social History/Home Situation: Lives with of 56 years in a private home with 3 steps to enter with a rail on the left side. There is another 16 steps to second floor of the house number her bedroom minutes with a rail on the right side going up. Historically has furniture walked inside the house. Equipment Owned/DME: None Subjective: Reports 2/10 pain in the left hip that decreased with ambulation activity. Denies headache, chest pain, and lightheadedness throughout session. Objective: General Observation: Mepilex Ag over surgical incision. TEDS to be legs. Prabhakar present in room throughout the evaluation. Mental Status: A and O x 4 Pain: As above ROM: Right Lower Extremity: Hip flexion WFL. Hip abduction WFL. Knee flexion WFL. Ankle dorsiflexion WFL. Ankle plantarflexion WFL Left Lower Extremity: Hip flexion WFL. Hip abduction WFL. Knee flexion WFL. Ankle dorsiflexion WFL. Ankle plantarflexion WFL. Strength: Right Lower Extremity: Hip flexors 5/5. Hip abductors 5/5. Knee flexors 5/5. Knee extensors 5/5. Ankle dorsiflexors 5/5. Ankle plantarflexors 5/5. Left Lower Extremity:Hip flexors 4-/5. Hip abductors 4-/5. Knee flexors 5/5. Knee extensors 4-/5. Ankle dorsiflexors 5/5. Ankle plantarflexors 5/5. Sensation: Intact as to pain and light pressure in BLE. Bed Mobility/Transfers: Minimal cueing provided for use of B hands as needed for support, movement sequence, Ad management, and and posture to reduce fall risk and minimize pain report Supine to sit stand by assist Sit to stand contact-guard assist Stand to sit stand by assist Bed to chair stand by assist Gait: Facilitated safe and correct performance of level surface ambulation covering a distance of 150 feet using front wheeled walker with step through reciprocal heel toe gait pattern requiring only contact-guard assist and minimal verbal cueing for limb advancement, posture, and AD management to minimize fall risk and reduce pain report. Stairs: Guided patient with safe and correct negotiation of 6 x 4 inch steps and 4 x 6 inch steps while holding onto bilateral rails with step to gait pattern requiring only contact-guard assist and minimal verbal cueing for limb advancement, hand placement, and safety to reduce fall risk and minimize pain report. Balance: Static Sitting: Normal Dynamic Sitting: Normal Static Standing: Fair Dynamic Standing: Fair Special Tests: Mobility Limitations Standardized Measure [facility] AM-PAC 6 clicks Basic Mobility Inpatient Short Form: Raw Score: 21 CMS Score: 29% deficit Informed Consent/Education: Patient instructed in purpose of PT consult. Packet containing ALANNA exercise protocol has been given to patient. Education and training on initial set of exercises that can be done at home have been completed with patient. Trained patient with correct performance of exercises below to maximize motor control, joint flexibility, soft tissue extensibility of the L hip musculature to facilitate return to independent functional mobility performance. Access Code: [email or web address] URL: [email or web address] Date: 10/17/2022 Prepared by: Concepcion Brown Exercises - Gluteal Sets - 1 x daily - 7 x weekly - 1 sets - 10 reps - 5 hold - Supine Heel Slide - 1 x daily - 7 x weekly - 1 sets - 10 reps - 5 hold - Supine Ankle Pumps - 1 x daily - 7 x weekly - 1 sets - 10 reps - 5 hold - Seated March - 1 x daily - 7 x weekly - 1 sets - 10 reps - 5 hold - Seated Long Arc Quad - 1 x daily - 7 x weekly - 1 sets - 10 reps - 5 hold Assessment: Jennie requires use of a front wheeled walker for all mobility ADL performance to maximize independence and reduce fall risk. Patient presents with clinical signs and symptoms consistent with current/admitting diagnoses that have resulted to mobility limitations, gait instability, generalized weakness, and impairment of motor control as demonstrated by the following impairment level findings: 1. Decreased strength to left hipmajor muscle groups 2. Impaired standing balance Impairments are contributing to the following functional limitations: 1. Inability to safely ambulate without assistive device 2. Increase completion time for mobility ADL performance 3. Increased fall risk Patient is assessed as a 20940 moderate complexity based on the following: History: 73-year-old female with impairment level findings, functional limitations, and past medical history as indicated above Examination: Demonstrable impairment in strength, balance, and mobility level with underlying impairments and functional limitations as documented above Presentation: Evolving Decision Makin moderate complexity Goals: N/A. PT evaluation and 1-2 treatment sessions only for functional mobility training using recommended AD and for HEP instruction. Plan of Care/Treatment Plan: N/A. PT evaluation and 1-2 treatment session only for functional mobility training using recommended AD and for HEP instruction. DISCHARGE RECOMMENDATIONS: Home when medically cleared by orthopedic surgeon. Recommend outpatient PT services in order to optimize functional mobility outcomes and facilitate return to independent community ambulation without an assistive device. TREATMENT CODE/TIME: 68174 x 28 minutes for 1 unit beginning at 12:38 PM Thank you for the opportunity to participate in the care of this patient. Please sign an return this page within 30 days if you agree with the above POC. Thank you! Physician Signature Date [facility] Concepcion Brown PT, DPT, CLT [facility] [place], [place]
--- NOTE | 2023-10-17 13:25 | W.ANESPOSTOP ---
Postoperative Evaluation Date, Time and Location Date Performed: 10/17/23 Time Performed: 13:25 Patient Location: Day Surgery Unit Vital Signs Most Recent Imported Vital Signs: Most Recent Vital Signs Temp Pulse Resp BP Pulse Ox 36.2 C L 68 16 166/71 H 98 10/17/23 12:16 10/17/23 12:16 10/17/23 12:16 10/17/23 12:16 10/17/23 12:16 Pain Score Most Recent Pain Score: Most Recent Pain Score Pain Level 3 10/17/23 12:16 Assessment Mental Status: Awake (Alert & Oriented to Patient Baseline) Airway and Respiratory Function: Patent airway with normal (patient baseline) respiratory exam Cardiovascular Function: Hemodynamically Stable Hydration Status: Adequately Hydrated Nausea & Vomiting: No Nausea or Vomiting Pain: Pain is tolerable per patient Peripheral Nerve Block: Patient did not receive a nerve block
--- NOTE | 2023-10-17 14:15 | W.PM.OP ---
Date of service: 10/17/23 Time of Service: 08:00 Operative Note Operative Note DATE OF PROCEDURE: 10/17/23 PRE-OP DIAGNOSIS: Left hip Osteoarthritis POST-OP DIAGNOSIS: same PROCEDURE: Left Anterior Total Hip Arthroplasty with Intraoperative Navigation SURGEON: Kulwant Jeffrey [employer] MECHANIC: Sara Newberry ANESTHESIA TYPE: Spinal Refer to Anesthesia Record ESTIMATED BLOOD LOSS: 100 PATHOLOGY: none sent TOURNIQUET TIME: 0 COMPLICATIONS: None Patient was transported to: PACU Patient's condition: stable Implants: 1. Depuy [place] Acetabular Component, 48mm 2. Depuy Acetabular Liner, 89f97am 3. Depuy Corail Standard 125 deg Collared Femoral Stem, Size 11 4. Depuy Altrx Ceramic Femoral Head, Size 32+5mm Indications: I have seen Jennie in clinic for symptoms of hip arthritis, confirmed with radiographic findings. Jennie has exhausted nonoperative methods and was having significant limitations in daily function and desired better function and less pain. I discussed the technical details of a hip replacement. I explained the risks of the procedure to include, but not limited to, bleeding, infection, pain, stiffness, fracture, damage to nerves and vessels, damage to muscles and tendons, loosening, instability, leg length inequality, need for repeat procedure, blood clot and cardiopulmonary demise. Despite these risks, Jennie elected to proceed. Findings: There was significant signs of arthritis throughout the hip. Procedure Description: Jennie was greeted in the preoperative holding area where the correct side was identified and marked. The consent was reviewed with the patient and signed. The history and physical was updated. All questions were answered. She was taken back to the operating room. A spinal anesthestic was attempted but unfortunately unsuccessful. Therefore, a general anesthetic was then administered. The feet were wrapped with cast padding and Coban and then placed into the boot liners and then into the boots. Care was taken to protect the skin and make sure the heels were fully down and the boots were stable. The patient was then positioned onto the HANA table. Both legs were held in a neutral position. SCDs were applied. The patient was then slid down onto a peroneal post. Prophylactic antibiotics in the form of Cefazolin were administered. 1g of Tranxemic Acid was given intravenously within 30 minutes of incision. The left leg was then prepped with Chloraprep and draped in a standard fashion. A second prep with Chloraprep was performed prior to placement of a shower-curtain type drape with Iodine impregnated skin protection. A timeout to confirm correct identity, side and site, procedure, allergies, anesthesia, and medical concerns was performed. An obliquely oriented incision was made starting lateral to the ASIS and running distal over the Tensor Fascia Radha (TFL) muscle belly toward the fibular head, approximately 10cm. The skin and soft tissue was dissected sharply, through Maris?s fascia, and to the fascia of the TFL. With the fascia and superior border of the IT band identified, the fascia was incised with a new knife just above any perforators from the IT band. The TFL muscle belly was bluntly dissected away from the fascia and moved laterally. The fat between TFL and rectus was identified to ensure the dissection was not within the TFL. Blunt dissection created space between abductors and the capsule and retractor was placed over the lateral femoral neck. The fibers of the rectus femoris tendon were identified and these were freed from the anterior capsule. A second cobra retractor was placed around the medial femoral neck. The TFL was further retracted laterally to show the deep fascia. Careful dissection through this layer identified three main crossing vessels of the lateral femoral circumflex. These were cauterized in multiple locations and then cut without any noticeable bleeding. The TFL was further released bluntly from the deep fascia to expose anterior hip capsule and fat The Danny orthopaedic retractor was then placed beneath the TFL and against sartorius and medial soft tissues to protect and retract the soft tissues. A T-capsulotomy was then performed starting at the superior lateral acetabulum and moving distally to the intertrochanteric ridge. These capsular flaps were tagged with a No. 1 Ethibond and elevated from within. The capsular flaps were released to the shoulder of the lateral neck and to the lesser trochanter to give excellent visualization of the proximal femur. A neck osteotomy was performed using an oscillating saw based on preoperative templates. This cut started in the shoulder and of the lateral neck and exited medially. The saw was at all times directed medially to avoid injury to the greater trochanter. Gross traction was applied to the leg and the osteotomy opened. The femoral head was removed with a corkscrew, making sure to protect the TFL on its exit. Traction was released after head removal. This was measured on the back table to determine the starting reamer size. Portions of the rectus obscuring visualization were minimally elevated off the superior acetabulum. An anterior retractor was placed over the anterior wall between capsule and labrum and attached to the Gripper retraction system. The femur was rotated to 90 degrees and medial capsule was fully released until the lesser trochanter was palpable and visible; the femur was returned to 30 degrees. A posterior retractor was placed similarly between capsule and labrum. This provided excellent visualization. The contents of the cotyloid fossa were removed with electrocautery and the labrum was removed with a knife. There was significant chondromalacia of the superior acetabulum. Acetabular reaming began with a 44mm reamer. This first reaming was directed anterior to posterior and medial to get down to the true floor. This was inspected and reamed until the true floor was reached. The anterior retractor was then released and entry and exit was provided by traction on the capsular flaps. I then reamed sequentially up to a 48mm reamer where good fit was obtained. The larger reamers were oriented based on anatomical reference of the anterior and lateral damon to ensure proper abduction and anteversion. Positioning and size was confirmed with the fluoroscopy. A 48mm Depuy [place] acetabular component was selected. The acetabulum was reamed around the periphery with the selected acetabular size to prevent a rim fit. The deep tissues were irrigated. The acetabular component was then impacted in a position of about 40-45 degrees of abduction and 15-20 degrees of anteversion, using the patient?s anatomy as the ultimate landmark. Fluoroscopy was used to confirm this. There was excellent pull worker of the acetabular component and the inserting handle was removed. The acetabular liner, Depuy [id number] polyethylene liner, was inserted and lined up with the tines of the acetabular component. There was no soft tissue interposition. The liner was then impacted into position and confirmed to be well-seated. A portion of the baldev-articular cocktail was then injected around the acetabulum into the capsule and periosteum. This cocktail consisted of 123mg of Ropivacaine, 0.25mg of Epinephrine, 0.04mg of Clonidine, and 15mg of Ketorolac, diluted to 50cc. The leg was rotated to 120 degrees. Any remaining medial capsule was released until the lesser trochanter was easily palpable. A retractor was placed medially. The lateral capsule was further released into the shoulder to allow access to the greater trochanter. A Sewell retractor was placed over the greater trochanter which allowed the trochanter to flip in front of the capsule for excellent exposure. The leg was brought down into maximal extension and 20 degrees of adduction while ensuring there was no impingement on the acetabulum. Any remnant capsule within the trochanter was released. Piriformis and obturator externis were identified and protected. There was excellent access to the proximal femur. The lateral neck remnant was removed with a rongeur. A blunt canal probe was used to identify the canal and trajectory for later broaching. A box osteotome initiated the broach course. A small curved rasp and a curved curette were used to work laterally. Broaching then began with a size 8 Corail broach. This was inserted manually around the trochanter and into the canal before mallet blows. The broach was seated to a few millimeters below the cut level based on the neck cut and the preoperative template. Sequential broaching was continued with the [employer] pneumatic broaching device until a tight fit was obtained with good rotational control of the femur. A trial short neck was inserted along with a +5 trial head. The leg was brought out of extension and adduction and then reduced with traction and internal rotation. The leg was stable anteriorly in a position of 30 degrees of extension and 90 degrees of external rotation. Fluoroscopy was used to ensure there was no fracture and the stem was seated well. Leg lengths were checked with an AP pelvis and pelvic reference points. Jointpoint navigation system was used to confirm appropriate positioning and leg length and offset. This unfortunately gave too much leg length and about the right amount of offset. Therefore, brought the leg back up into extension and external rotation and we broached with a size 11 which advanced the stem approximately 6 mm. The hip was trialed once again and joint point navigation was utilized to evaluate leg length and offset. This showed improved leg length correction but somewhat under correction of the offset and therefore a standard 125 neck option was chosen. Once content with the desired offset and leg lengths, the leg was brought back into extension, external rotation and adduction. The periosteum and surrounding tissue was injected with remaining portion of the baldev-articular cocktail. The proximal femur was irrigated as well as the deep tissues. The [employer] Corail standard 125 degree collared stem, size 11, was then manually inserted into the proximal femur making sure to control rotation. It was then malleted into position with light blows, giving breaks to allow bone expansion and decrease risk of fracture. The selected Depuy Altrx Ceramic Head, size 32+5mm, was then placed onto the clean and dry trunnion and secured with impaction onto the tapered fit. The leg was brought back out of extension and adduction and reduced with traction and internal rotation. Stability was confirmed with no shuck at 90 degrees of external rotation and 30 degrees of extension. No impingement through range of motion arc. Final x-ray images were obtained with fluoroscopy to confirm adequate positioning and no intraoperative fracture. The deep tissues were thoroughly irrigated with Irrisept chlorhexadine solution. This was allowed to sit in the wound for 3 minutes before being thoroughly irrigated out with normal saline. The capsule was then reapproximated with the previously placed Ethibond sutures. The TFL fascia was finally closed with a No. 2 Stratafix, barbed suture. Deep tissues were then reapproximated with 0 Vicryl and a running 2-0 Vicryl. The skin was closed with a running 4-0 Monocryl in a subcuticular fashion. This was reinforced with skin glue. A Mepilex silver dressing was applied. At the end of the case, all counts were correct. Jennie was transferred to the hospital bed without difficulty and suffering no apparent complication. Jennie has a good prognosis. Physical therapy will start today and without restrictions, weight-bearing as tolerated. Aspirin 81mg BID will be used for DVT prophylaxis.
== END 2023-10-17 14:27 | disposition home or self-care (01) ==
PROVIDERS: PCP Nurse Practitioner Family; Visit Provider Student in an Organized Health Care Education/Training Program
PROC: (CPT 27130; principal; 2023-10-17 07:30)
DX: M16.12 Unilateral primary osteoarthritis, left hip (principal); I10 Essential (primary) hypertension
CPT/HCPCS: 20985; 27130; C1776; 97162; 73501; J0690; J1100; J1805; J2001; J2060; J2250; J2371; J2401; J2405; J2704; J3010

== ENCOUNTER 2023-10-30 13:50 | Outpatient (CLI) | payer MEDICARE, BC, SELFPAY ==
--- NOTE | 2023-10-30 13:15 | DI.RAD_ITS ---
Exam(s) XR PELVIS AP XR HIP LT AP LAT ONLY EXAM: XR HIP LT AP LAT ONLY CLINICAL HISTORY: F/U LEFT ALANNA. TECHNIQUE: 2D digital imaging was performed. Three images were obtained. AP pelvis, AP and lateral left hip views were obtained. COMPARISON: CR XR PELVIS AP from 09/11/2023 XA XR HIP LT IN OR from 10/17/2023 FINDINGS: BONES: There are stable post operative changes of a left total hip replacement present. No fracture or dislocation. JOINTS: The orthopedic hardware is in good position. No evidence of hardware loosening. The right h ip is well maintained. SOFT TISSUE: Normal. IMPRESSION: Stable postoperative changes. DATA REPOSITORY: RADIATION DOSE DELIVERED:
== END 2023-10-30 13:51 | disposition home or self-care (01) ==
LOC: DIORS 13:50
PROVIDERS: PCP Nurse Practitioner Family; Referring Provider Nurse Practitioner Family; Visit Provider Student in an Organized Health Care Education/Training Program
DX: Z96.642 Presence of left artificial hip joint (principal); Z47.1 Aftercare following joint replacement surgery
CPT/HCPCS: 72170; 73502

== ENCOUNTER → 2023-11-07 09:37 | Outpatient (BNVA) | payer MEDICARE, BC, SELFPAY | PROVIDERS: PCP Nurse Practitioner Family; Referring Provider Nurse Practitioner Family; Visit Provider Student in an Organized Health Care Education/Training Program | DX: M75.102 Unspecified rotator cuff tear or rupture of left shoulder, not specified as traumatic (principal); M12.812 Other specific arthropathies, not elsewhere classified, left shoulder | CPT/HCPCS: 20610; J1030 ==

== ENCOUNTER → 2023-11-27 14:14 | Outpatient (BNVA) | payer MEDICARE, BC, SELFPAY | PROVIDERS: PCP Nurse Practitioner Family; Referring Provider Nurse Practitioner Family; Visit Provider Student in an Organized Health Care Education/Training Program | DX: Z47.1 Aftercare following joint replacement surgery (principal); Z96.642 Presence of left artificial hip joint ==

== ENCOUNTER → 2024-01-29 14:08 | Outpatient (BNVA) | payer MEDICARE, BC, SELFPAY | PROVIDERS: PCP Nurse Practitioner Family; Referring Provider Nurse Practitioner Family | DX: Z47.1 Aftercare following joint replacement surgery (principal); Z96.642 Presence of left artificial hip joint ==

== ENCOUNTER 2024-05-17 17:05 | Emergency (ER) | payer MEDICARE, BC, SELFPAY ==
[2024-05-17] VITALS (38 sets, daily range): BP systolic 117–165; BP diastolic 49–96; PULSE 68–94; RESP 10–34; TEMP 35.2; O2SAT 97
--- NOTE | 2024-05-17 17:00 | DI.RAD_ITS ---
Exam(s) XR ELBOW RT COMPLETE EXAM: XR ELBOW RT COMPLETE CLINICAL HISTORY: FALL. TECHNIQUE: 2D digital imaging was performed of the left elbow. Three images were obtained. AP, lat eral and oblique views were obtained. COMPARISON: No exams were available for comparison FINDINGS: BONES: No acute fracture is present. No bony destructive lesion is seen. JOINTS: The elbow is normally aligned. No significant joint effusion is seen. SOFT TISSUE: Normal. IMPRESSION: No acute fracture or dislocation. DATA REPOSITORY: RADIATION DOSE DELIVERED:
--- NOTE | 2024-05-17 17:00 | DI.CT_ITS ---
Exam(s) CT HEAD CERVICAL SPINE WO EXAM: CT HEAD CERVICAL SPINE WO CLINICAL HISTORY: TRAUMA. TECHNIQUE: Imaging Protocol: Axial computed tomography images with coronal and sagittal reformatted images were created and reviewed COMPARISON: CT CT HEAD WO from 05/04/2023 FINDINGS: BRAIN: There are no skull fractures. There is mucosal thickening in both maxillary sinuses without fluid le vels. Also mucosal thickening noted in ethmoid air cells bilaterally well as in the sphenoid sinuses none. Frontal sinuses clear. Mastoid air cells clear on the left and sclerotic on the right. Ther e is no fluid in the middle ear cavities. There is no evidence of intracranial hemorrhage, mass effect, or shift of midline structures. There are no extra-axial fluid collections. The ventricles are not enlarged or shifted and there is no blo od within the ventricular system nor within the basal cisterns. There is mild bilateral periventricular hypodensity consistent with chronic small vessel disease. No evidence of acute infarct. CERVICAL SPINE: There is no evidence of acute cervical spine fracture nor prevertebral soft tissue swelling. There i s mild degenerative anterolisthesis of C4 upon C5 related to facet arthropathy. There is also mild a nterolisthesis of C7 upon T1, also related to facet arthropathy. No disc space narrowing at this lev el. There is no facet malalignment. There is chronic disc space narrowing at C5-6 and C6-7 levels. There is no significant facet joint malalignment. No significant osseous lesions evident. IMPRESSION: No acute intracranial findings on this noninfused CT scan of the brain. No evidence of cervical spine fracture, malalignment, nor acute compromise of the cervical spinal can al. Chronic multilevel degenerative disc disease and facet arthropathy. Report called by myself to ER physician 05/17/2024 7:05 p.m. RADIATION DOSE DELIVERED: Total DLP DATA REPOSITORY: All CT scans at this facility are submitted to the National Radiology Data Registry (NRDR) Dose Index Registry (DIR) with the [employer] (A[employer]). RADIATION OPTIMIZATION: All CT scans at this facility use at least one of these dose optimization te chniques: automated exposure control; mA and/or kV adjustment per patient size (includes targeted exa ms where dose is matched to clinical indication); or iterative reconstruction.
--- NOTE | 2024-05-17 17:00 | RT.EKG_ITS ---
APPROVED REPORT Exam: Resting ECG Reason for Exam: LOC Patient Location: E HR:80 bpm ECG Measurements Heart Rate 80 AXIS NM 155 P 67 QRSd 100 QRS 46 QT 393 T 19 QTc 453 Conclusion Sinus rhythm 80 normal axis no stemi
--- NOTE | 2024-05-17 17:00 | DI.RAD_ITS ---
Exam(s) XR ANKLE RT COMPLETE EXAM: XR ANKLE RT COMPLETE CLINICAL HISTORY: FALL. TECHNIQUE: 2D digital imaging was performed of the right ankle. Three images were obtained. AP, la teral and oblique views were obtained. COMPARISON: No exams were available for comparison FINDINGS: BONES: No acute fracture is present. No bony destructive lesion is seen. JOINTS: The ankle mortise is normally aligned. SOFT TISSUE: There is soft tissue swelling around the ankle. IMPRESSION: No acute fracture or dislocation. DATA REPOSITORY: RADIATION DOSE DELIVERED:
--- NOTE | 2024-05-17 17:00 | DI.RAD_ITS ---
Exam(s) XR KNEE LT 3V AP,LAT,YAIR EXAM: XR KNEE LT 3V AP,LAT,YAIR CLINICAL HISTORY: FALL. TECHNIQUE: 2D digital imaging was performed of the left knee. Three images were obtained. AP, late ral and PA tunnel views were obtained. COMPARISON: No exams were available for comparison FINDINGS: BONES: No acute fracture is present. No bony destructive lesion is seen. JOINTS: The knee is normally aligned. No joint effusion is seen. No loose body. SOFT TISSUE: Normal. IMPRESSION: No acute fracture or dislocation. DATA REPOSITORY: RADIATION DOSE DELIVERED:
[2024-05-17] MEDS: Normal Saline 1,000 ML 1000 ML IV (17:35)
[2024-05-17] MEDS: Ondansetron 4 MG/2 ML VIAL IVP (17:35)
[2024-05-17] MEDS: MORPHine 10 MG/ML VIAL 2 MG IVP (17:35)
[2024-05-17] MEDS: ACETAMINOPHEN 1,000 MG/100 ML BTL 400 MG IVPB (17:36)
[2024-05-17] MEDS: Lidocaine/Epinephri/Tetracaine Topical Gel 3 ML TP (17:36)
[2024-05-17] MEDS: MAGNESIUM SULFATE 8.12 MEQ, MULTIVITAMIN 10 ML, THIAMINE 100 MG, FOLIC ACID 1 MG in Nor... 168.867 MG IV (17:58)
[2024-05-17 19:25] LABS: Abs Immature Grans 0.14 10^3/uL (0.0-0.06); Absolute Eosinophil Count 0.13 10^3/uL (0.0-0.7); Absolute Lymphocyte Count 1.54 10^3/uL (1.2-3.4); Absolute Monocyte Count 0.79 10^3/uL (0.1-0.8); Basophils % 0.7 %; Eosinophils % 1.1 %; HCT 42.5 % (36.0-46.0); HGB 14.1 g/dL (11.2-15.7); Immature Grans % 1.2 %; Lymphocytes % 12.7 %; MCH 33.4 pg (27.0-33.0); MCHC 33.2 % (32.0-36.0); MCV 101 fL (80-95); MPV 9.5 fL (8.0-11.0); Monocytes % 6.5 %; Neutrophils % 77.8 %; Platelet Count 304 10^3/uL (130-400); RBC 4.22 10^6/uL (3.93-5.22); RDW 13.2 % (11.7-14.6); RDW-SD 49.5 fL; WBC 12.09 10^3/uL (4.4-10.8)
[2024-05-17 19:26] LABS: Absolute Basophil Count 0.08 10^3/uL (0.0-0.2); Absolute Neutrophil Count 9.41 10^3/uL (1.2-6.7)
--- NOTE | 2024-05-17 19:39 | DI.VRAD_ITS ---
PROCEDURE INFORMATION: Exam: XR Left Knee Exam date and time: 05/17/2024 19:04 Age: 73 years old Clinical indication: Injury or trauma; Fall; Blunt trauma; Knee; Left TECHNIQUE: Imaging protocol: Radiologic exam of the left knee. Views: 3 views. COMPARISON: US LOWER EXTREMITY VENOUS LT 02/12/2020 10:37 FINDINGS: Bones/joints: The bones are demineralized. No acute fracture or subluxation. No significant joint effusion. Soft tissues: Unremarkable. IMPRESSION: No acute bony pathology. Dictated and Authenticated by: Suzanne Chanel MD. Ordering:[facility] Lesvia Villalobos MD
--- NOTE | 2024-05-17 19:39 | DI.VRAD_ITS ---
PROCEDURE INFORMATION: Exam: XR Right Ankle Exam date and time: 05/17/2024 19:00 Age: 73 years old Clinical indication: Injury or trauma; Fall; Blunt trauma; Ankle; Right TECHNIQUE: Imaging protocol: Radiologic exam of the right ankle. Views: 3 or more views. COMPARISON: No relevant prior studies available. FINDINGS: Bones/joints: No acute fracture or subluxation. Soft tissues: Generalized soft tissue swelling. IMPRESSION: No acute bony pathology. Dictated and Authenticated by: Suzanne Chanel MD. Ordering:IVORY Villalobos MD
[2024-05-17 19:40] LABS: Prothrombin Time 9.9 sec (9.1-11.1)
--- NOTE | 2024-05-17 19:40 | DI.VRAD_ITS ---
PROCEDURE INFORMATION: Exam: XR Right Elbow Exam date and time: 05/17/2024 19:08 Age: 73 years old Clinical indication: Injury or trauma; Fall; Blunt trauma (contusions or hematomas); Elbow; Right TECHNIQUE: Imaging protocol: Radiologic exam of the right elbow. Views: 3 or more views. COMPARISON: No relevant prior studies available. FINDINGS: Bones/joints: No acute fracture or subluxation. Challenging to assess for joint fluid given rotation of the lateral view. Soft tissues: Unremarkable. IMPRESSION: No acute bony pathology. Dictated and Authenticated by: Suzanne Chanel MD. Ordering:[facility] Lesvia Villalobos MD
[2024-05-17 19:47] LABS: ALT 24 U/L (14-59); AST 32 U/L (15-37); Albumin 3.5 g/dL (3.4-5.0); Alkaline Phosphatase 68 U/L (46-116); Anion Gap 8.6 mmol/L (3-11); BUN 7 mg/dL (7-18); Bilirubin, Total 0.29 mg/dL (0.2-1.0); CO2 26.4 mmol/L (21.0-32.0); CREATININE 0.7 mg/dL (0.55-1.02); Calcium 8.8 mg/dL (8.5-10.1); Chloride 107 mmol/L (98-107); Creatine Kinase 366 U/L (26-192); ETHANOL BLOOD 185.2 mg/dL (<10); Glucose 105 mg/dL (74-106); Potassium 3.5 mmol/L (3.5-5.1); Sodium 142 mmol/L (136-145); Total Protein 6.9 g/dL (6.4-8.2); Troponin I < 50 ng/L (< or =60)
--- NOTE | 2024-05-17 20:06 | ED.GENADUL_ITS ---
Discharge Plan Disposition Patient Disposition: Home Condition: Stable Discharge Details Clinical Impression: Alcohol intoxication, Fall, CHI (closed head injury), Laceration of scalp Primary Care Provider: Jeimy Vee ED Provider: Logan Lakhani Home Meds and New Rx's Prescriptions: No Action cholecalciferol (vitamin D3) 25 mcg (1,000 unit) capsule 25 mcg PO DAILY multivitamin [Daily Multi-Vitamin] Tablet 1 tab PO DAILY acetaminophen 500 mg tablet 1,000 mg PO Q8H PRN Qty: 90 0RF Rx Instructions: Take two tablets up to every 8 hours as needed for pain docusate sodium [Colace] 100 mg capsule 100 mg PO BID Qty: 30 0RF Discharge Instructions Additional Instructions: * Avoid drinking alcohol to excess * Imaging is negative today no fractures * Laceration on the scalp was closed with 3 emeterio, these can be removed in 7 to 10 days by urgent care or primary care provider * Will likely be sore for the next few days, make sure to drink lots of water and eat regular meals. you can take Motrin or Tylenol for pain HPI General Date/Time Provider Initiated Documentation: 05/17/24 17:12 . Limitations to Documentation: altered mental status and physical limitation . Information obtained by: patient, family and EMS . HPI Narrative: 73-year-old female with past medical history of chronic alcohol abuse, hypertension presents for evaluation after a fall. Patient has been reported to have been drinking heavily today. Is the anniversary of her son's . She had multiple shots of vodka and at some point fell down the stairs. This was an unwitnessed fall. EMS transported. Unknown downtime, c-collar placed prior to arrival. [place] of blood noted at scene likely from scalp wound. Related Data Home Medications ?Medication ?Instructions ?Recorded ?Confirmed acetaminophen 500 mg tablet 1,000 mg (2 x 500 mg) PO Q8H PRN 10/17/23 01/29/24 pain #90 tabs docusate sodium 100 mg capsule 100 mg PO BID #30 caps 10/17/23 01/29/24 (Colace) multivitamin (Daily Multi-Vitamin 1 tab PO DAILY 10/17/23 01/29/24 tablet) cholecalciferol (vitamin D3) 25 25 mcg PO DAILY 11/07/23 01/29/24 mcg (1,000 unit) capsule Previous Rx's ?Medication ?Instructions ?Recorded acetaminophen 500 mg tablet 1,000 mg (2 x 500 mg) PO Q8H PRN 10/17/23 pain #90 tabs docusate sodium 100 mg capsule 100 mg PO BID #30 caps 10/17/23 (Colace) Allergies Allergy/AdvReac Type Severity Reaction Status Date / Time Penicillins Allergy Unknown ITCHING, Verified 01/29/24 14:18 RASH General Stated Complaint: Fall/Non TraumaCriteria CHANCE: 3 Exam Narrative Exam Narrative: Review of Systems: All systems reviewed & are unremarkable except as noted in HPI and below Well-developed, distressed, crying, saying that she is scared 2 cm laceration over the left parietal scalp PERRL, normal conjunctiva No facial trauma RRR no murmur Unlabored respiratory effort clear bilaterally Nondistended abdomen soft nontender Right elbow with contusion and mild swelling, no obvious deformity, neurovascularly intact Left knee with anterior contusion, no significant effusion, full range of motion right ankle with abrasion Back midline no step-off tenderness or deformity pelvis stable c-collar in place, nontender midline neck Moving all extremities well and has equal strength throughout Course Vital Signs Vital signs: Vital Signs Temperature 35.2 C L 05/17/24 17:09 Pulse 80 05/17/24 17:09 Respiratory Rate 20 05/17/24 17:09 Blood Pressure 156/84 H 05/17/24 17:09 Pulse Oximetry 97 05/17/24 17:09 Temperature 35.2 C L 05/17/24 17:09 Temperature Source Tympanic 05/17/24 17:09 Pulse 94 H 05/17/24 17:46 Pulse 92 H 05/17/24 17:40 Respiratory Rate 33 H 05/17/24 17:50 Respiratory Effort Normal 05/17/24 17:20 Blood Pressure 146/91 H 05/17/24 17:46 Blood Pressure Mean 103 05/17/24 17:46 Blood Pressure Position Sitting 05/17/24 17:09 Pulse Oximetry 97 05/17/24 17:09 Oxygen Delivery Method Room Air 05/17/24 17:09 Oxygen Flow Rate 0 05/17/24 17:09 Lab/Test Results Lab/Test Results: Laboratory Tests Range/Units 05/17/24 19:20 WBC (4.4-10.8) 10^3/uL 12.09 H RBC (3.93-5.22) 10^6/uL 4.22 Hgb (11.2-15.7) g/dL 14.1 Hct (36.0-46.0) % 42.5 MCV (80-95) fL 101 H MCH (27.0-33.0) pg 33.4 H MCHC (32.0-36.0) % 33.2 RDW (11.7-14.6) % 13.2 Plt Count (130-400) 10^3/uL 304 MPV (8.0-11.0) fL 9.5 Immature Gran % % 1.2 Neutrophils % % 77.8 Lymphocytes % % 12.7 Monocytes % % 6.5 Eosinophils % % 1.1 Basophils % % 0.7 Nucleated RBC % (0.0-0.3) % 0.0 Absolute Neutrophils (1.2-6.7) 10^3/uL 9.41 H Absolute Lymphocytes (1.2-3.4) 10^3/uL 1.54 Absolute Monocytes (0.1-0.8) 10^3/uL 0.79 Absolute Eosinophils (0.0-0.7) 10^3/uL 0.13 Absolute Basophils (0.0-0.2) 10^3/uL 0.08 PT (9.1-11.1) sec 9.9 INR (0.9-1.1) 1.0 APTT (23.6-32.8) sec 19.0 L Sodium (136-145) mmol/L 142 Potassium (3.5-5.1) mmol/L 3.5 Chloride (98-107) mmol/L 107 Carbon Dioxide (21.0-32.0) mmol/L 26.4 Anion Gap (3-11) mmol/L 8.6 BUN (7-18) mg/dL 7 Creatinine (0.55-1.02) mg/dL 0.7 Est GFR (CKD-EPI 2020) (mL/min/1.73m2) 90.70 Glucose (74-106) mg/dL 105 Calcium (8.5-10.1) mg/dL 8.8 Magnesium (1.8-2.4) mg/dL 2.0 Total Bilirubin (0.2-1.0) mg/dL 0.29 AST (15-37) U/L 32 ALT (14-59) U/L 24 Alkaline Phosphatase (46-116) U/L 68 Creatine Kinase (26-192) U/L 366 H Troponin I (< or =60) ng/L < 50 Total Protein (6.4-8.2) g/dL 6.9 Albumin (3.4-5.0) g/dL 3.5 Ethyl Alcohol (<10) mg/dL 185.2 H Procedures Laceration Laceration 1: Site: scalp Side (If applicable): left Size (cm): 2 Description: linear Depth: simple, single layer Skin layer closed with: other (emeterio ) Number of sutures: 3 Medical Decision Making Emergent evaluation after fall. Initial differential includes closed head injury, alcohol intoxication, fracture. Unknown downtime, so would consider rhabdo, hypoglycemia or other metabolic derangement. Head CT obtained as well as C-spine. These are not demonstrating any acute injuries. X-rays of the extremity areas are also unremarkable. Lab work was concerning for a mildly elevated CPK and the patient fluids. Her alcohol is elevated which is consistent with drinking. Her white blood cell count is slightly elevated which is likely a stress shift. Her remaining lab work is unremarkable. Her EKG was reviewed and independently interpreted. Sinus 80, normal axis, no acute ischemic changes or dysrhythmia. Laceration was repaired without complication. Patient was observed in the emergency department and she was able to tolerate p.o. and ambulate independently. Discussed safety plan for going home. Patient is accompanied in the ER by her 3 children who feel she is safe to go home. Advised to avoid drinking to excess. To follow-up with primary care for reevaluation and suture removal and alcohol support as needed. Medical Records Medical records reviewed: Yes I reviewed the patient's medical records. Lab Data Lab results reviewed: Yes I reviewed the patient's lab results. Quality:SDOH Health Related Social Needs: No Data to Display PFSH All Active Problems Laceration of scalp (Acute) CHI (closed head injury) (Acute) Fall (Acute) Alcohol intoxication (Acute) History of total left hip arthroplasty (Acute 10/17/23) Left rotator cuff tear arthropathy (Acute) Retinal hole of right eye (Acute) Cataract, bilateral (Acute) Vitreous hemorrhage (Acute) Elevated blood pressure reading in office without diagnosis of hypertension (Acute) Medical History Former tobacco use Alcohol abuse HTN (hypertension) Surgical History Hx of tonsillectomy History of cataract surgery Social History Smoking/Tobacco Use Status: Former Tobacco Use Quit Date: 10/02/13 Smoking risk assessment performed?: Yes Alcohol Intake: former Drug use: Never Substance use type: does not use Housing: house Do you feel safe at home: Yes Do you feel safe in your relationship?: Yes Additional Social history: unable to assess privately PAWSS Have you Been Recently Intoxicated or Drunk Within the Last 30 days?: Yes Have you Ever Experienced Previous Episodes of Alcohol Withdrawal?: No Have you ever Experienced Withdrawal Seizures?: No Have you ever Experienced Delirium Tremens(DT)s?: No Have you ever undergone Alcohol Rehabilitation Treatment (i.e, inpt ot outpatie nt treatment programs)?: No Have you ever Experienced Blackouts?: Yes Have you ever Combined Alcohol with other Downers within the last 90 days?: No Have you ever Combined Alcohol with any other Substance of Abuse during the last 90 days?: No Positive Blood Alcohol level on Presentation? [PCS.BAL]: No Evidence of Increased Autonomic Activity (i.e. HR>120, tremor, sweating, agitation, nausea)?: No Result: 2
== END 2024-05-17 21:09 | disposition home or self-care (01) ==
PROVIDERS: Emergency Provider Emergency Medicine; PCP Nurse Practitioner Family
DX: F10.120 Alcohol abuse with intoxication, uncomplicated (principal); S09.8XXA Other specified injuries of head, initial encounter; S01.01XA Laceration without foreign body of scalp, initial encounter; I10 Essential (primary) hypertension; Z87.891 Personal history of nicotine dependence; W10.8XXA Fall (on) (from) other stairs and steps, initial encounter; Y93.01 Activity, walking, marching and hiking; Y92.018 Other place in single-family (private) house as the place of occurrence of the external cause
CPT/HCPCS: 12001; 73562; 80053; 82550; 93005; 96365; 96375; 99285; 70450; 72125; 73080; 73610; 80320; 83735; 84484; 85025; 85610; 85730; 93010; 99284; J0131; J2270; J2405; J3411; J3475

== ENCOUNTER 2025-01-13 14:52 | Outpatient (CLI) | payer MEDICARE, BC, SELFPAY ==
--- NOTE | 2025-01-13 13:00 | DI.RAD_ITS ---
Exam(s) XR HIP LT AP LAT ONLY EXAM: XR HIP LT AP LAT ONLY INDICATION: ANNUAL F/U L ALANNA. COMPARISON: No exams were available for comparison TECHNIQUE: 2D digital imaging was performed. Two views. FINDINGS: Stable alignment of left hip prosthesis. No abnormal surrounding lucencies. DATA REPOSITORY: RADIATION DOSE DELIVERED:
== END 2025-01-13 14:53 | disposition home or self-care (01) ==
LOC: DIORS 14:52
PROVIDERS: PCP Nurse Practitioner Family; Visit Provider Student in an Organized Health Care Education/Training Program
DX: Z47.1 Aftercare following joint replacement surgery (principal); Z96.642 Presence of left artificial hip joint
CPT/HCPCS: 99213; 73502

== ENCOUNTER 2025-03-23 16:35 | Emergency (ER) | payer MEDICARE, BC, SELFPAY ==
[2025-03-23 16:34] VITALS: BP 164/68; PULSE 72; RESP 18; TEMP 36.6; O2SAT 96
--- NOTE | 2025-03-23 16:38 | W.ED.GENAD ---
Discharge Plan Disposition Condition: Stable Discharge Details Chief Complaint: PsychEval Clinical Impression: Alcohol intoxication, Suicidal ideation Primary Care Provider: Jeimy Vee ED Provider: Maki Yi Home Meds and New Rx's Prescriptions: No Action cholecalciferol (vitamin D3) 25 mcg (1,000 unit) capsule 25 mcg PO DAILY multivitamin [Daily Multi-Vitamin] Tablet 1 tab PO DAILY acetaminophen 500 mg tablet 1,000 mg PO Q8H PRN Qty: 90 0RF Rx Instructions: Take two tablets up to every 8 hours as needed for pain docusate sodium [Colace] 100 mg capsule 100 mg PO BID Qty: 30 0RF HPI General Date/Time Provider Initiated Documentation: 03/23/25 16:38. HPI Narrative: 74-year-old female with history of alcohol abuse presents for evaluation of suicidal ideation. Patient states that she began drinking at 8 AM this morning. She has been drinking all day. She has been having grief. Suicidal thoughts have increased depression. Plan was to decrease out to methadone. This afternoon she began to have a panic attack and was hyperventilating. She then called EMS. She denies any recreational drugs. No duto-onc-xioliwv medications. Denies any medical concerns at this time. No longer having a panic attack or hyperventilating. Does not feel short of breath at this time. Related Data Home Medications ?Medication ?Instructions ?Recorded ?Confirmed acetaminophen 500 mg tablet 1,000 mg (2 x 500 mg) PO Q8H PRN 10/17/23 03/23/25 pain #90 tabs docusate sodium 100 mg capsule 100 mg PO BID #30 caps 10/17/23 03/23/25 (Colace) multivitamin (Daily Multi-Vitamin 1 tab PO DAILY 10/17/23 03/23/25 tablet) cholecalciferol (vitamin D3) 25 25 mcg PO DAILY 11/07/23 03/23/25 mcg (1,000 unit) capsule Previous Rx's ?Medication ?Instructions ?Recorded acetaminophen 500 mg tablet 1,000 mg (2 x 500 mg) PO Q8H PRN 10/17/23 pain #90 tabs docusate sodium 100 mg capsule 100 mg PO BID #30 caps 10/17/23 (Colace) Allergies Allergy/AdvReac Type Severity Reaction Status Date / Time Penicillins Allergy Unknown ITCHING, Verified 03/23/25 16:39 RASH General CHANCE: 3 Review of Systems Narrative: Remainder of review of systems otherwise negative except for as noted in the HPI x 10. Exam Narrative Exam Narrative: General: non-toxic, no respiratory distress, tearful HEENT: normocephalic, atraumatic, lids and lashes normal, PERRL, EOMI, anicteric sclera, no conjunctival injection, moist oral mucosa Card: regular rate and rhythm, S1S2, no murmurs, rubs, or gallops Lungs: good air entry, clear to auscultation bilaterally. no wheezes, rales, rhonchi, or retractions Abd: soft, non-tender, non-distended, normal bowel sounds, no rebound or guarding, no peritoneal signs Musculoskeletal: full range of motion of arms and legs, no tenderness to palpation. no clubbing, cyanosis, or edema Neurologic: appropriate for age, strength normal Psych: alert and oriented, + suicidal ideation Skin: no petechiae, no lesions, warm and dry Medical Decision Making 74-year-old female presents for evaluation of suicidal ideation alcohol intoxication. She is tearful. Laboratory studies show the patient is significantly intoxicated. Will allow to sober and then have mental health evaluation. PFSH All Active Problems (Updated 03/23/25 @ 20:05 by Maki Yi MD) Suicidal ideation (Acute) Alcohol intoxication (Acute) Grief at loss of child (Acute) Left rotator cuff tear arthropathy (Acute) Retinal hole of right eye (Acute) Cataract, bilateral (Acute) Vitreous hemorrhage (Acute) Elevated blood pressure reading in office without diagnosis of hypertension (Acute) Medical History Former tobacco use Alcohol abuse HTN (hypertension) Surgical History History of total left hip arthroplasty (10/17/23) Hx of tonsillectomy History of cataract surgery Social History Smoking/Tobacco Use Status: Former Tobacco Use Quit Date: 10/02/13 Smoking risk assessment performed?: Yes Alcohol Intake: former Drug use: Never Substance use type: does not use Housing: house Do you feel safe at home: Yes Do you feel safe in your relationship?: Yes Additional Social history: unable to assess privately
[2025-03-23 17:23] LABS: Abs Immature Grans 0.08 10^3/uL (0.0-0.06); Absolute Basophil Count 0.07 10^3/uL (0.0-0.2); Absolute Eosinophil Count 0.34 10^3/uL (0.0-0.7); Absolute Lymphocyte Count 1.98 10^3/uL (1.2-3.4); Absolute Monocyte Count 0.71 10^3/uL (0.1-0.8); Absolute Neutrophil Count 3.86 10^3/uL (1.2-6.7); Eosinophils % 4.8 %; HCT 46.3 % (36.0-46.0); HGB 15.4 g/dL (11.2-15.7); Immature Grans % 1.1 %; Lymphocytes % 28.1 %; MCH 32.2 pg (27.0-33.0); MCHC 33.3 % (32.0-36.0); MCV 97 fL (80-95); Monocytes % 10.1 %; Neutrophils % 54.9 %; Platelet Count 248 10^3/uL (130-400); RBC 4.79 10^6/uL (3.93-5.22); RDW 15.1 % (11.7-14.6); RDW-SD 54.1 fL; WBC 7.04 10^3/uL (4.4-10.8)
[2025-03-23 17:46] LABS: Salicylate < 2.8 mg/dL (<2.8)
[2025-03-23 17:49] LABS: ALT 18 U/L (14-59); AST 20 U/L (15-37); Albumin 3.8 g/dL (3.4-5.0); Alkaline Phosphatase 109 U/L (46-116); Anion Gap 10.3 mmol/L (3-11); BUN 7 mg/dL (7-18); Bilirubin, Total 0.3 mg/dL (0.2-1.0); CO2 28.7 mmol/L (21.0-32.0); CREATININE 0.6 mg/dL (0.55-1.02); Chloride 106 mmol/L (98-107); ETHANOL BLOOD 221.9 mg/dL (<10); Estimated GFR 93.55 (mL/min/1.73m2); Glucose 96 mg/dL (74-106); Sodium 145 mmol/L (136-145); TSH (W/Ref FT4) 5.87 uIU/mL (0.36-3.74); Total Protein 7.9 g/dL (6.4-8.2)
[2025-03-23 17:50] LABS: Acetaminophen < 2 ug/mL (10-30)
[2025-03-23 18:08] LABS: FREE T4 0.87 ng/dL (0.76-1.46)
[2025-03-23] MEDS: Acetaminophen 500 MG TAB 1000 MG PO (19:06)
[2025-03-23 22:47] LABS: Bilirubin Negative (Negative); Blood Trace-intact (Negative); Clarity Cloudy (Clear); Glucose Negative (Negative); Ketones Negative (Negative); Leukocyte Esterase Moderate (Negative); Nitrite Positive (Negative); Specific Gravity 1.015 (1.005-1.025); Urobilinogen 0.2 mg/dL (Up to 0.2); pH 5.5 (5-8)
[2025-03-23 22:56] LABS: Bacteria Moderate HPF (Negative); C & S Indicated? Yes; Casts Negative LPF (Negative); Crystals Negative HPF (Negative); Epithelial Cells Few HPF (Negative); Mucus Moderate (Negative); RBC 0-2 HPF (0-2); WBC 20-50 HPF (0-5)
[2025-03-23 23:00] LABS: *AMPHETAMINES SCREEN URINE Negative (Negative); *BARBITURATES SCREEN URINE Negative (Negative); *BENZODIAZEPINES SCREEN URINE Negative (Negative); Cannabinoids THC Negative (Negative); Cocaine Screen,Urine Negative (Negative); METHADONE URINE SCREEN Negative (Negative); OPIATES URINE SCREEN Negative (Negative)
[2025-03-23 23:02] LABS: Tricyclic Antidepressants Negative (Negative)
--- NOTE | 2025-03-24 02:54 | ED.PROG_ITS ---
Date of service: 03/24/25 Time of Service: 02:55 Medical Decision Making Patient signed out to me pending mental health evaluation. Patient awake and alert, clear speech and mentation after 2 AM. She has been calm and cooperative. Currently denies any type of SI or HI and was just feeling very lonely and had been drinking. She was evaluated by [facility] and felt to be safe for discharge home with family. Her son has already agreed to pick her up when she is ready for discharge. Patient encouraged to drink in moderation only in the future. Return precautions provided. Discharge Plan Disposition Patient Disposition: Home Condition: Good Discharge Details Clinical Impression: Alcohol intoxication Primary Care Provider: Jeimy Vee ED Provider: Pawel Khan [place] Sasha and New Rx's Prescriptions: Continued cholecalciferol (vitamin D3) 25 mcg (1,000 unit) capsule 25 mcg PO DAILY multivitamin [Daily Multi-Vitamin] Tablet 1 tab PO DAILY acetaminophen 500 mg tablet 1,000 mg PO Q8H PRN Qty: 90 0RF Rx Instructions: Take two tablets up to every 8 hours as needed for pain docusate sodium [Colace] 100 mg capsule 100 mg PO BID Qty: 30 0RF Discharge Instructions Additional Instructions: You were seen in the ED with alcohol intoxication and there were concerns for your safety. Once sober you were evaluated by mental health and cleared for discharge home to family. Please follow-up with primary care as needed. Please drink in moderation in the future. Return to the ED for any unsafe feelings, thoughts of self-harm, other concerns.
== END 2025-03-24 03:23 | disposition home or self-care (01) ==
PROVIDERS: Emergency Medicine Emergency Medical Services; Emergency Provider Emergency Medicine; PCP Nurse Practitioner Family
DX: R45.851 Suicidal ideations (principal); F10.929 Alcohol use, unspecified with intoxication, unspecified; I10 Essential (primary) hypertension; F32.A Depression, unspecified; Z87.891 Personal history of nicotine dependence; Y90.7 Blood alcohol level of 200-239 mg/100 ml
CPT/HCPCS: 00123; 36415; 80053; 80307; 87077; 99284; 80320; 80329; 81003; 81015; 84439; 84443; 85025; 87086; 87186

== ENCOUNTER → 2025-08-22 02:39 | Outpatient (CLI) | payer MEDICARE, BC, SELFPAY ==
--- NOTE | 2025-08-22 13:51 | DI.RAD_ITS ---
Exam(s) XR KNEE RT 3V AP,LAT,YAIR EXAM: XR KNEE RT 3V AP,LAT,YAIR CLINICAL HISTORY: ACUTE PAIN OF R KNEE, M25.561. TECHNIQUE: 2D digital imaging was performed. Three views. COMPARISON: CR,XR XR KNEE LT 3V AP,LAT,YAIR from 05/17/2024 FINDINGS: BONES: No acute fracture is present. No bony destructive lesion is seen. JOINTS: The there is moderate to severe narrowing of the lateral femoral tibial joint space. There is mild periarticular spurring. There is mild spurring at the medial femoral tibial joint. The patellofemoral joint is unremarkable. No joint effusion is seen. SOFT TISSUE: Normal. 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 DATA REPOSITORY: RADIATION DOSE DELIVERED:
--- NOTE | 2025-08-22 13:51 | DI.DEXA_ITS ---
Exam(s) XR DEXA BONE DENSITY W/WO KELSIE EXAM: XR DEXA BONE DENSITY W/WO KELSIE CLINICAL HISTORY: SCREENING FOR OSTEOPOROSIS, ASYMPTOMATIC MENOPAUSAL STATE, Z78.0 TECHNIQUE: Routine DEXA evaluation of the lumbar spine, hip, or forearm. COMPARISON: No exams were available for comparison FINDINGS: Performed on a Hologic unit. The right hip was scanned because there is a left hip prosthesis. Lateral image: Degenerative scoliosis. Multilevel degenerative disc disease. No obvious compression fractures. Lumbar Spine total T-score: -0.1 which is in normal range Hip total T-score:-1.0 which is low normal range Independent reading at the level of the femoral neck yields T-score of -1.5 which is in the osteopenia range. Forearm total T-score: -2.8 which is in the osteoporosis range IMPRESSION: Bone mineral density measures in the osteoporosis range for the wrist. Fracture risk is high at this level. Bone mineral density is in the osteopenia range for the hip. Fracture risk at this level is moderate. Bone mineral density is in the normal range for the lumbar spine. Fracture risk at this level is low. Note: Any spine fracture indicates 5x risk for subsequent spine fracture and 2x risk for subsequent hip fracture. World Health Organization criteria for BMD interpretation classify patients: Normal...... T- Score at or above -1.0 Osteopenic... T- Score between -1.0 and -2.5 Osteoporosis... T-Score at or below -2.5
== END ==
PROVIDERS: PCP Nurse Practitioner Family; Visit Provider Nurse Practitioner Family
DX: Z78.0 Asymptomatic menopausal state (principal)
CPT/HCPCS: 73562; 77080